=== PATIENT | female | born 1950 | race Caucasian/White ===

== ENCOUNTER → 2023-08-18 10:17 | Outpatient (REF) | payer MEDICARE, OTHER, SELFPAY ==
[2023-08-18 11:03] LABS: % Basophils 1.1 % (0-2); % Eosinophils 4.6 % (0-6); % Immature Granulocytes 0.8 % (0-0.5); % Lymphocytes 22.5 % (20.5-51.1); % Monocytes 8.5 % (1.7-9.3); % Neutrophils 62.5 % (42.2-75.2); Absolute Basophils 0.1 10^3/uL (0-0.2); Absolute Eosinophils 0.5 10^3/uL (0-0.7); Absolute Immature Granulocytes 0.1 10^3/uL (0-0.05); Absolute Lymphocytes 2.4 10^3/uL (1.2-3.4); Absolute Monocytes 0.9 10^3/uL (0.1-0.6); Absolute Neutrophils 6.6 10^3/uL (1.4-6.5); Hemoglobin 13.5 g/dL (12.0-16.0); Mean Corp Hgb Conc. 33.8 g/dL (33.0-37.0); Mean Corpuscular Hgb 31.3 pg (27.0-31.0); Mean Corpuscular Volume 92.6 fL (81.0-99.0); Mean Platelet Volume 10.8 fL (7.4-10.4); Nucleated Red Blood Cells % 0 %; Platelet Count 266 10^3/uL (130-400); Red Blood Cell Count 4.32 10^6/uL (4.20-5.40); Red Cell Dist. Width 13.8 % (11.5-14.5); White Blood Cell Count 10.6 10^3/uL (4.8-10.8)
[2023-08-18 11:35] LABS: Erythrocyte Sed Rate 38 mm/hour (0-20)
[2023-08-18 12:17] LABS: ALT (SGPT) 22 U/L (0-35); AST (SGOT) 27 U/L (14-36); Albumin 4.2 g/dl (3.5-5.0); Alkaline Phosphatase 97 U/L (38-126); Blood Urea Nitrogen 48 mg/dl (7-17); Calcium 9.8 mg/dl (8.4-10.2); Carbon Dioxide 21 mmol/L (22-30); Chloride 100 mmol/L (98-107); Direct Bilirubin 0.6 mg/dl (0.0-0.4); Glucose 148 mg/dl (70-99); HDL Cholesterol 41 mg/dl; LDL Cholesterol, Calculated 81 mg/dl; Sodium 137 mmol/L (135-145); Total Cholesterol 159 mg/dl (50-199); Total Protein 7.3 g/dl (6.3-8.2); Triglyceride 188 mg/dl (10-149); Very Low Density Lipoprotein 37 mg/dl (0-30); eGFR 27.71
[2023-08-18 12:24] LABS: TSH Reflex To Free T4 2.92 uIU/ml (0.47-4.68)
== END ==
LOC: REG 10:17
PROVIDERS: ATTENDING PHYSICIAN Internal Medicine Rheumatology; FAMILY PHYSICIAN Internal Medicine; REFERRING PHYSICIAN Specialist
DX: L98.9 Disorder of the skin and subcutaneous tissue, unspecified (principal); M06.00 Rheumatoid arthritis without rheumatoid factor, unspecified site; M10.9 Gout, unspecified; M25.50 Pain in unspecified joint; Z51.81 Encounter for therapeutic drug level monitoring; E11.8 Type 2 diabetes mellitus with unspecified complications; E78.5 Hyperlipidemia, unspecified; E66.01 Morbid (severe) obesity due to excess calories; L56.9 Acute skin change due to ultraviolet radiation, unspecified
CPT/HCPCS: 36415; 80053; 80061; 82248; 83036; 84443; 85025; 85652; 86140

== ENCOUNTER → 2023-11-29 09:49 | Outpatient (REF) | payer MEDICARE, OTHER, SELFPAY ==
[2023-11-29 11:35] LABS: % Eosinophils 6.4 % (0-6); % Immature Granulocytes 0.8 % (0-0.5); % Lymphocytes 17.3 % (20.5-51.1); % Monocytes 8.7 % (1.7-9.3); % Neutrophils 65.8 % (42.2-75.2); Absolute Basophils 0.1 10^3/uL (0-0.2); Absolute Eosinophils 0.6 10^3/uL (0-0.7); Absolute Immature Granulocytes 0.1 10^3/uL (0-0.05); Absolute Lymphocytes 1.7 10^3/uL (1.2-3.4); Absolute Monocytes 0.8 10^3/uL (0.1-0.6); Absolute Neutrophils 6.3 10^3/uL (1.4-6.5); Hematocrit 35.1 % (37.0-47.0); Hemoglobin 11.8 g/dL (12.0-16.0); Mean Corp Hgb Conc. 33.6 g/dL (33.0-37.0); Mean Corpuscular Hgb 30.9 pg (27.0-31.0); Mean Corpuscular Volume 91.9 fL (81.0-99.0); Mean Platelet Volume 10.8 fL (7.4-10.4); Nucleated Red Blood Cells % 0 %; Platelet Count 244 10^3/uL (130-400); Red Blood Cell Count 3.82 10^6/uL (4.20-5.40); Red Cell Dist. Width 14.6 % (11.5-14.5); White Blood Cell Count 9.6 10^3/uL (4.8-10.8)
[2023-11-29 11:44] LABS: Protein/creatinine Ratio 0.2; Urine Protein 24 mg/dl
[2023-11-29 11:48] LABS: Microalbumin/creatinine Ratio 21.6 mg/g
[2023-11-29 11:50] LABS: Erythrocyte Sed Rate 65 mm/hour (0-20)
[2023-11-29 13:08] LABS: ALT (SGPT) 17 U/L (0-35); AST (SGOT) 30 U/L (14-36); Alkaline Phosphatase 101 U/L (38-126); Blood Urea Nitrogen 36 mg/dl (7-17); Calcium 9.3 mg/dl (8.4-10.2); Carbon Dioxide 20 mmol/L (22-30); Chloride 105 mmol/L (98-107); Direct Bilirubin 0.6 mg/dl (0.0-0.4); Glucose 95 mg/dl (70-99); HDL Cholesterol 48 mg/dl; LDL Cholesterol, Calculated 67 mg/dl; Phosphorus 3.9 mg/dl (2.5-4.5); Sodium 138 mmol/L (135-145); Total Bilirubin 0.9 mg/dl (0.2-1.3); Total Cholesterol 149 mg/dl (50-199); Total Protein 7.1 g/dl (6.3-8.2); Triglyceride 173 mg/dl (10-149); Very Low Density Lipoprotein 34 mg/dl (0-30); eGFR 31.66
[2023-11-29 13:16] LABS: NT-proBNP 347 pg/ml
[2023-11-30 09:22] LABS: Glycohemoglobin (HgbA1c) 6.3 % (4.0-5.6)
[2023-11-30 13:19] LABS: Intact PTH 111.1 pg/ml (13.6-85.8)
[2023-11-30 15:53] LABS: Iron 64 ug/dl (37-170)
[2023-11-30 16:02] LABS: Percent Saturation 23 % (20-50); Total Iron Binding Capacity 277 ug/dl (265-497)
[2023-11-30 17:23] LABS: Folate 17.5 ng/ml (2.76-20); Vitamin B12 587 pg/ml (239-931)
[2023-12-01 07:52] LABS: Quantiferon Mitogen minus NIL 0.18 IU/mL; Quantiferon NIL 0.02 IU/mL; Quantiferon Plus TB1 minus NIL 0.01 IU/mL (0.00-0.34); Quantiferon Plus TB2 minus NIL 0.01 IU/mL (0.00-0.34); Quantiferon TB Gold Plus Indeterminate (Negative)
== END ==
LOC: REG 09:49
PROVIDERS: ATTENDING PHYSICIAN Internal Medicine Rheumatology; FAMILY PHYSICIAN Internal Medicine; REFERRING PHYSICIAN Specialist
DX: E11.22 Type 2 diabetes mellitus with diabetic chronic kidney disease (principal); E11.59 Type 2 diabetes mellitus with other circulatory complications; E66.01 Morbid (severe) obesity due to excess calories; E78.5 Hyperlipidemia, unspecified; I10 Essential (primary) hypertension; L98.9 Disorder of the skin and subcutaneous tissue, unspecified; M06.00 Rheumatoid arthritis without rheumatoid factor, unspecified site; M10.9 Gout, unspecified; M25.50 Pain in unspecified joint; Z51.81 Encounter for therapeutic drug level monitoring; N18.4 Chronic kidney disease, stage 4 (severe); D64.9 Anemia, unspecified; R20.2 Paresthesia of skin
CPT/HCPCS: 36415; 80053; 80061; 82043; 82248; 82570; 82607; 82746; 83036; 83540; 83550; 83735; 83880; 83970; 84100; 84156; 85025; 85652; 86140; 86480

== ENCOUNTER → 2023-12-27 10:50 | Outpatient (REF) | payer MEDICARE, OTHER, SELFPAY ==
[2023-12-29 20:10] LABS: Quantiferon NIL 0.02 IU/mL; Quantiferon Plus TB1 minus NIL 0.02 IU/mL (<=0.34); Quantiferon Plus TB2 minus NIL 0.02 IU/mL (<=0.34); Quantiferon TB Gold Plus Negative (Negative)
== END ==
LOC: REG 10:50
PROVIDERS: ATTENDING PHYSICIAN Internal Medicine Rheumatology; FAMILY PHYSICIAN Internal Medicine
DX: E11.41 Type 2 diabetes mellitus with diabetic mononeuropathy (principal); G62.9 Polyneuropathy, unspecified; K75.9 Inflammatory liver disease, unspecified; M06.00 Rheumatoid arthritis without rheumatoid factor, unspecified site; M10.9 Gout, unspecified; M25.50 Pain in unspecified joint; M81.0 Age-related osteoporosis without current pathological fracture; Z11.1 Encounter for screening for respiratory tuberculosis; Z51.81 Encounter for therapeutic drug level monitoring
CPT/HCPCS: 36415; 86480

== ENCOUNTER → 2024-03-27 09:19 | Outpatient (REF) | payer MEDICARE, OTHER, SELFPAY ==
[2024-03-27 10:38] LABS: ALT (SGPT) 24 U/L (0-35); AST (SGOT) 28 U/L (14-36); Albumin 4.5 g/dl (3.5-5.0); Alkaline Phosphatase 89 U/L (38-126); Direct Bilirubin 0.3 mg/dl (0.0-0.4); Glucose 109 mg/dl (70-99); HDL Cholesterol 49 mg/dl; LDL Cholesterol, Calculated 86 mg/dl; Total Bilirubin 0.8 mg/dl (0.2-1.3); Total Cholesterol 179 mg/dl (50-199); Total Protein 7.3 g/dl (6.3-8.2); Triglyceride 224 mg/dl (10-149); Very Low Density Lipoprotein 44 mg/dl (0-30)
[2024-03-27 11:35] LABS: Glycohemoglobin (HgbA1c) 5.9 % (4.0-5.6)
== END ==
LOC: REG 09:19
PROVIDERS: ATTENDING PHYSICIAN Internal Medicine; OTHER PHYSICIAN Internal Medicine Rheumatology; REFERRING PHYSICIAN Specialist
DX: E11.59 Type 2 diabetes mellitus with other circulatory complications (principal)
CPT/HCPCS: 36415; 80061; 80076; 82947; 83036

== ENCOUNTER → 2024-04-21 12:40 | Outpatient (REF) | payer MEDICARE, OTHER, SELFPAY ==
[2024-04-21 13:45] LABS: % Eosinophils 4.7 % (0-6); % Immature Granulocytes 0.9 % (0-0.5); % Lymphocytes 21.1 % (20.5-51.1); % Monocytes 9.2 % (1.7-9.3); % Neutrophils 63.1 % (42.2-75.2); Absolute Basophils 0.1 10^3/uL (0-0.2); Absolute Eosinophils 0.4 10^3/uL (0-0.7); Absolute Immature Granulocytes 0.1 10^3/uL (0-0.05); Absolute Lymphocytes 1.8 10^3/uL (1.2-3.4); Absolute Monocytes 0.8 10^3/uL (0.1-0.6); Absolute Neutrophils 5.5 10^3/uL (1.4-6.5); Hematocrit 36.9 % (37.0-47.0); Hemoglobin 12.3 g/dL (12.0-16.0); Mean Corp Hgb Conc. 33.3 g/dL (33.0-37.0); Mean Corpuscular Volume 92.9 fL (81.0-99.0); Mean Platelet Volume 11.3 fL (7.4-10.4); Nucleated Red Blood Cells % 0 %; Platelet Count 215 10^3/uL (130-400); Red Blood Cell Count 3.97 10^6/uL (4.20-5.40); Red Cell Dist. Width 14.8 % (11.5-14.5); White Blood Cell Count 8.7 10^3/uL (4.8-10.8)
[2024-04-21 14:10] LABS: Protein/creatinine Ratio 0.3; Urine Protein 23 mg/dl
[2024-04-21 14:14] LABS: ALT (SGPT) 23 U/L (0-35); AST (SGOT) 31 U/L (14-36); Albumin 4.4 g/dl (3.5-5.0); Alkaline Phosphatase 83 U/L (38-126); Blood Urea Nitrogen 37 mg/dl (7-17); Calcium 9.3 mg/dl (8.4-10.2); Carbon Dioxide 21 mmol/L (22-30); Chloride 106 mmol/L (98-107); Glucose 113 mg/dl (70-99); Phosphorus 4.1 mg/dl (2.5-4.5); Potassium 5.1 mmol/L (3.5-5.1); Sodium 143 mmol/L (135-145); Total Bilirubin 0.9 mg/dl (0.2-1.3); Total Protein 7.2 g/dl (6.3-8.2); eGFR 29.38
[2024-04-21 14:15] LABS: C-Reactive Protein < 5.00 mg/L (0.0-10.00); Erythrocyte Sed Rate 37 mm/hour (0-20)
[2024-04-21 14:20] LABS: NT-proBNP 404 pg/ml
[2024-04-21 14:31] LABS: Vitamin D, 25-OH*** 24.5 ng/mL (30-80)
[2024-04-22 11:20] LABS: Intact PTH 127.8 pg/ml (13.6-85.8)
== END ==
LOC: REG 12:40
PROVIDERS: ATTENDING PHYSICIAN Internal Medicine Rheumatology; FAMILY PHYSICIAN Internal Medicine; REFERRING PHYSICIAN Specialist
DX: I87.2 Venous insufficiency (chronic) (peripheral) (principal); N18.4 Chronic kidney disease, stage 4 (severe); E55.9 Vitamin D deficiency, unspecified; L98.9 Disorder of the skin and subcutaneous tissue, unspecified; M06.00 Rheumatoid arthritis without rheumatoid factor, unspecified site; M10.9 Gout, unspecified; M25.50 Pain in unspecified joint; Z51.81 Encounter for therapeutic drug level monitoring
CPT/HCPCS: 36415; 80053; 82306; 82570; 83880; 83970; 84100; 84156; 85025; 85652; 86140

== ENCOUNTER → 2024-08-14 11:31 | Outpatient (REF) | payer MEDICARE, OTHER, SELFPAY ==
[2024-08-14 13:03] LABS: % Basophils 0.8 % (0-2); % Eosinophils 5.2 % (0-6); % Immature Granulocytes 0.6 % (0-0.5); % Lymphocytes 24.8 % (20.5-51.1); % Monocytes 8.1 % (1.7-9.3); % Neutrophils 60.5 % (42.2-75.2); Absolute Basophils 0.1 10^3/uL (0-0.2); Absolute Eosinophils 0.5 10^3/uL (0-0.7); Absolute Immature Granulocytes 0.1 10^3/uL (0-0.05); Absolute Lymphocytes 2.3 10^3/uL (1.2-3.4); Absolute Monocytes 0.8 10^3/uL (0.1-0.6); Absolute Neutrophils 5.7 10^3/uL (1.4-6.5); Hematocrit 38.9 % (37.0-47.0); Hemoglobin 12.7 g/dL (12.0-16.0); Mean Corp Hgb Conc. 32.6 g/dL (33.0-37.0); Mean Corpuscular Hgb 31.1 pg (27.0-31.0); Mean Corpuscular Volume 95.3 fL (81.0-99.0); Mean Platelet Volume 11.3 fL (7.4-10.4); Nucleated Red Blood Cells % 0 %; Platelet Count 210 10^3/uL (130-400); Red Blood Cell Count 4.08 10^6/uL (4.20-5.40); Red Cell Dist. Width 14.2 % (11.5-14.5); White Blood Cell Count 9.5 10^3/uL (4.8-10.8)
[2024-08-14 13:18] LABS: Erythrocyte Sed Rate 50 mm/hour (0-20)
[2024-08-14 13:35] LABS: Glycohemoglobin (HgbA1c) 8.1 % (4.0-5.6)
[2024-08-14 13:37] LABS: ALT (SGPT) 20 U/L (0-35); AST (SGOT) 27 U/L (14-36); Albumin 4.6 g/dl (3.5-5.0); Alkaline Phosphatase 85 U/L (38-126); Blood Urea Nitrogen 43 mg/dl (7-17); Calcium 9.6 mg/dl (8.4-10.2); Carbon Dioxide 27 mmol/L (22-30); Chloride 98 mmol/L (98-107); Direct Bilirubin 0.2 mg/dl (0.0-0.4); Glucose 128 mg/dl (70-99); Potassium 3.9 mmol/L (3.5-5.1); Sodium 138 mmol/L (135-145); Total Bilirubin 0.8 mg/dl (0.2-1.3); Total Cholesterol 177 mg/dl (50-199); Total Protein 7.5 g/dl (6.3-8.2); Triglyceride 208 mg/dl (10-149); Uric Acid 7.6 mg/dl (2.5-6.2); Very Low Density Lipoprotein 41 mg/dl (0-30); eGFR 24.42
[2024-08-14 13:40] LABS: Calcium 9.7 mg/dl (8.4-10.2)
[2024-08-14 13:43] LABS: HDL Cholesterol 49 mg/dl; LDL Cholesterol, Calculated 87 mg/dl
[2024-08-14 13:47] LABS: Intact PTH 32.1 pg/ml (13.6-85.8)
[2024-08-14 13:59] LABS: Protein/creatinine Ratio 0.2; Urine Protein 20 mg/dl
[2024-08-14 14:01] LABS: Vitamin D, 25-OH*** 31.3 ng/mL (30-80)
== END ==
LOC: REG 11:31
PROVIDERS: ATTENDING PHYSICIAN Specialist; FAMILY PHYSICIAN Internal Medicine; OTHER PHYSICIAN Internal Medicine Rheumatology
DX: Z87.448 Personal history of other diseases of urinary system (principal); Z86.39 Personal history of other endocrine, nutritional and metabolic disease; R76.8 Other specified abnormal immunological findings in serum; E55.9 Vitamin D deficiency, unspecified; L98.9 Disorder of the skin and subcutaneous tissue, unspecified; M06.00 Rheumatoid arthritis without rheumatoid factor, unspecified site; M10.9 Gout, unspecified; M54.50 Low back pain, unspecified; M81.0 Age-related osteoporosis without current pathological fracture; Z51.81 Encounter for therapeutic drug level monitoring; E11.65 Type 2 diabetes mellitus with hyperglycemia
CPT/HCPCS: 36415; 80053; 80061; 82248; 82306; 82570; 83036; 83970; 84156; 84550; 85025; 85652; 86140

== ENCOUNTER 2024-08-28 17:55 | Inpatient (IN) | payer MEDICARE, OTHER, SELFPAY ==
[2024-08-28] VITALS (7 sets, daily range): BP systolic 110–153; BP diastolic 45–69; PULSE 76; BMI 43.0
[2024-08-28 12:17] LABS: % Basophils 0.7 % (0-2); % Lymphocytes 16.7 % (20.5-51.1); % Monocytes 9.2 % (1.7-9.3); % Neutrophils 69.4 % (42.2-75.2); Absolute Basophils 0.1 10^3/uL (0-0.2); Absolute Eosinophils 0.2 10^3/uL (0-0.7); Absolute Immature Granulocytes 0.3 10^3/uL (0-0.05); Absolute Lymphocytes 2.1 10^3/uL (1.2-3.4); Absolute Monocytes 1.1 10^3/uL (0.1-0.6); Absolute Neutrophils 8.5 10^3/uL (1.4-6.5); Hematocrit 33.8 % (37.0-47.0); Hemoglobin 11.4 g/dL (12.0-16.0); Mean Corp Hgb Conc. 33.7 g/dL (33.0-37.0); Mean Corpuscular Hgb 31.4 pg (27.0-31.0); Mean Corpuscular Volume 93.1 fL (81.0-99.0); Mean Platelet Volume 10.9 fL (7.4-10.4); Nucleated Red Blood Cells % 0 %; Platelet Count 253 10^3/uL (130-400); Red Blood Cell Count 3.63 10^6/uL (4.20-5.40); Red Cell Dist. Width 15.1 % (11.5-14.5); White Blood Cell Count 12.3 10^3/uL (4.8-10.8)
[2024-08-28 12:29] LABS: Lactic Acid 1.9 mmol/L (0.7-2.0)
[2024-08-28 12:30] LABS: ALT (SGPT) 31 U/L (0-35); AST (SGOT) 34 U/L (14-36); Alkaline Phosphatase 122 U/L (38-126); Blood Urea Nitrogen 39 mg/dl (7-17); Calcium 8.8 mg/dl (8.4-10.2); Carbon Dioxide 21 mmol/L (22-30); Chloride 100 mmol/L (98-107); Glucose 179 mg/dl (70-99); Sodium 137 mmol/L (135-145); Total Bilirubin 1.1 mg/dl (0.2-1.3); Total Protein 7.1 g/dl (6.3-8.2); eGFR 23.09
--- NOTE | 2024-08-28 15:41 | ED.GENMED ---
History of Present Illness
General
Chief Complaint: Skin Problem
Time Seen by Provider: 08/28/24 13:48
History of Present Illness
History of Present Illness:
74-year-old female with history of diabetes presenting for worsening wound to her left foot. Patient notes that she does follow with a field specialist, Dr. Garcia. She last saw her field specialist in . She notes she has had a chronic
ulceration on her left first toe. In the past several days she has had worsening redness and blistering. Notes chronic neuropathy. Denies any fever. Notes history of debridement in the past, however no amputations. She has not currently on any
antibiotics. Denies additional acute medical complaints
Past History
Past History
ED Past Medical History: HTN, NIDDM and Other
ED Past Surgical History: Orthopedic
Social History
Tobacco: Non-smoker
Alcohol: Occasional
Drug: None
Personal: Single
Living: alone
Phy Exam
Physical Exam
Physical Exam:
General: Well-appearing, no clinical signs of dehydration, nontoxic and in no acute distress
HEENT: protecting airway
Neck: appears supple
CV: Normal heart rate
Resp: No accessory muscle use, no increased work of breathing
Abd: no distension
Extremities: Swelling and redness to the first toe with blistering and superficial fluid collections to consistency of pus extending into the MTP. Chronic callus to the plantar aspect. Dopplerable pulses. Erythema tracks to the ankle. Sensation
intact
Neuro: alert, no focal neurologic deficit
: deferred
Rectal: deferred
Psych: Normal affect
Skin: Intact
Course
Orders/Labs/Results
Orders:
Orders
08/28/24 12:05
Complete Blood Count/With Diff Urgent
Comprehensive Metabolic Panel Urgent
Lactate Level [Lactic Acid] Q4H
Blood Culture Urgent
EMIGDIO Source: Blood/Venous
Specimen Description:
08/28/24 14:25
Foot, Left 3 View [CR Foot - Left Min 3 Views] Urgent
Comment:
Reason For Exam: 1st toe foot wound
08/28/24 14:42
Wound Culture [Wound/Abscess/Other Culture] Urgent
EMIGDIO Source: Foot
Specimen Description: Left
Date Specimen was Collected: 08/28/24
Time Specimen was Collected: 14:27
08/28/24 Dinner
Cholesterol Lowering
At Your Request: Limited Participation
Cholesterol Lowering: Sodium, 2 Gram
1800 agusto/15 CHO Diabetic
08/28/24 16:06
Sterile Water [Sterile Water For Injection] 10 ml .ROUTE .STK-MED ONE
08/28/24 16:24
CeFAZolin 2 GRAM [Ancef] 2 grams in 10 ml IV NOW
08/28/24 16:26
Vancomycin [Vancocin] 1,500 mg 0.9% Sodium Chloride 500 ml [Nss] 500 ml IV NOW
08/28/24 16:58
Admit/Transfer Patient As Directed
Co-Sign Provider:
Level of Care: Inpatient admission
Assign to:: Medical/Surgical
Physician / Group: stewart díaz
Diagnosis: L great toe cellulitis expanding to foot/lower leg, dm2 timoteo/ckd4
Reason for Hospitalization: L great toe cellulitis expanding to foot/lower leg, dm2 timoteo/ckd4
Expected length of stay greater than two midnights?: Yes
ELOS- Estimated Length of Stay in days: 5
I certify the patient meets the requirements for IP care: Yes
Code Status As Directed
Resuscitation Status: Full Code
PODIATRY CONSULT Routine
Consulting Provider: Shonna Garcia
Was physician already notified: Yes
Reason for consult: left great toe cellulitis expandng to foot and 1/3 lower leg
08/28/24 17:06
PRN Pain Medication Management As Directed
May give lesser potent ordered pain med per pt: Yes
preference::
Protocol:: Medication orders for pain may be administered in a
manner that supports deferring to patient preference
when the pt is:
- Requesting an ordered lesser potent pain medication.
Least to most potent pain medications are defined
as: acetaminophen < NSAID < tramadol < opioids
(morphine, oxycodone, hydromorphone).
- Requesting a lesser dose of the same medication IF
ORDERED.
- Requesting a less intrusive route of administration
if both routes are prescribed by the provider (PO <
IV).
08/28/24 17:15
0.9% Sodium Chloride 1000 ml [Nss] 1,000 ml IV 100 mls/hr
08/28/24 17:24
Blood Culture Urgent
EMIGDIO Source: Blood/Venous
Specimen Description:
08/28/24 18:42
Acetaminophen [Tylenol] 650 mg PO Q4HPRN PRN
Bisacodyl [Dulcolax] 10 mg RECTAL [id number] PRN
Dextrose 50%-Water [Dextrose 50% Syringe] 12.5 grams IV [id number] PRN
Docusate W/Senna [Senokot-S] 1 tablet PO BIDPRN PRN
Glucagon [GlucaGen] 1 mg IM PRN PRN
Polyethylene Glycol Powder [Miralax] 17 grams PO DAILYPRN PRN
VANCOMYCIN Pharmacy to Dose [VANCOCIN Pharmacy to Dose] 1 each Pharmacy To Prepare [Call Pharmacy To Prepare] 0 ml IV PER PROTOCOL
08/28/24 18:42
Activity As Directed
Activity Level: With Assistance
Comment: uses rollator
Bedside Glucose Monitoring As Directed
Frequency: AC&HS
Additional Instructions:: Change to q6h if pt on TPN, tube feeding or not eating
Intake/ Output As Directed
Frequency: Per unit guidelines
Vital Signs As Directed
Frequency: Per unit guidelines
Weight As Directed
Frequency: Daily
Ot Eval And Treat Routine
Pt Eval And Treat Routine
Treatment: Uses rollator at baseline
Activity Level: With Assistance
DX Deep Vein Thrombosis Video Routine
08/28/24 20:00
Cefepime HCl [Maxipime] 1,000 mg IV Q24H
Heparin 5,000 units SC Q12
08/28/24 22:00
Cpap [RESP] Routine
Patient to use own unit?: No
Set Pressure (cm H2O): 15
Instructions: Uses nasal mask
08/29/24 07:17
Complete Blood Count/With Diff IN AM
Comprehensive Metabolic Panel IN AM
08/29/24 07:30
Insulin Aspart Corrective Low [Novolog Flexpen-Low Resistance] See Protocol SC AC
08/30/24 06:00
Complete Blood Count/With Diff IN AM
Comprehensive Metabolic Panel IN AM
08/31/24 06:00
Complete Blood Count/With Diff IN AM
Comprehensive Metabolic Panel IN AM
09/01/24 06:00
Complete Blood Count/With Diff IN AM
Comprehensive Metabolic Panel IN AM
09/02/24 06:00
Complete Blood Count/With Diff IN AM
Comprehensive Metabolic Panel IN AM
Abnormal Lab Results
08/28/24
12:05
WBC 12.3 H 10^3/uL
(4.8-10.8)
RBC 3.63 L 10^6/uL
(4.20-5.40)
Hgb 11.4 L g/dL
(12.0-16.0)
Hct 33.8 L %
(37.0-47.0)
MCH 31.4 H pg
(27.0-31.0)
RDW 15.1 H %
(11.5-14.5)
MPV 10.9 H fL
(7.4-10.4)
Abs Immat Gran (auto) 0.3 H 10^3/uL
(0-0.05)
Absolute Neuts (auto) 8.5 H 10^3/uL
(1.4-6.5)
Absolute Monos (auto) 1.1 H 10^3/uL
(0.1-0.6)
Immature Gran % 2.0 H %
(0-0.5)
Lymphocytes % 16.7 L %
(20.5-51.1)
Carbon Dioxide 21 L mmol/L
(22-30)
BUN 39 H mg/dl
(7-17)
Creatinine 2.2 H mg/dL
(0.6-1.0)
Glucose 179 H mg/dl
(70-99)
08/28/24 12:05
08/28/24 12:05
Vital Signs
Initial and Last Documented VS:
Initial Vital Signs
Temp Pulse Resp BP Pulse Ox
98.7 F 70 16 153/69 97
08/28/24 11:51 08/28/24 11:51 08/28/24 11:51 08/28/24 11:51 08/28/24 11:51
Last Documented Vital Signs
Temp Pulse Resp BP Pulse Ox
98.6 F 81 18 113/54 98
08/29/24 07:00 08/29/24 07:00 08/29/24 07:00 08/29/24 07:00 08/29/24 07:00
MDM/Problems Addressed
MDM/Problems Addressed:
74-year-old female with history of diabetes presenting for worsening left foot infection. Vital signs are normal.
On exam patient is resting comfortably, nontoxic and afebrile. Patient with grossly abnormal left foot and large wound involving the first toe extending up to the foot with surrounding cellulitic changes and pustules. Concern for cellulitis and
acute infection. Plan for laboratory analysis and x-ray imaging. Will also discussed with patient's field specialist.
15:45 - Patient does have mild leukocytosis. No signs of gas on x-ray. Podiatry made aware. Plan for admission for IV antibiotics and potential treatment
*Critical Care Note
Total Time (30-74mins, 75-104mins- exclusive of procedures): Not Applicable
ED Attending Note
-
Portions of this chart may have been created with voice recognition software.� Occasional wrong word or��sound alike� substitutions may have occurred due to the inherent limitations of voice recognition software.
Discharge Plan
Departure
Patient Disposition: Admit
Date of Disposition: 08/28/24
Time of Disposition: 16:19
Presentation/result/management discussed w/ accepting MD/DO: Hospitalist
Discharge Problem:
Diabetic foot ulcer, Cellulitis of foot
Interventions
Interventions:
*Risk Screen - Suicide Last Done: 08/28/24 16:54
*General Assessment Last Done: 08/28/24 16:54
*Neglect/Abuse Screening Last Done: 08/28/24 16:54
ED- Fall Risk Assessment Last Done: 08/28/24 18:34
*ED COVID-19 Vaccine History Last Done: 08/28/24 16:54
*Nursing Disposition Last Done: 08/28/24 18:34
ED-Skin Assessment Last Done: 08/28/24 18:34
Discharge Date and Time
Discharge Date/Time: 08/28/24 18:36
--- NOTE | 2024-08-28 16:31 | HPS.HSE ---
Family Physician
-
Family Physician: Fran Vance
Chief Complaint
-
Left great toe blister with erythema to foot and lower leg
History of Present Illness
74-year-old female complaining of a worsening wound to her left foot. She follows with podiatry Dr. Garcia and last saw her in April/May 2024 due to a chronic ulceration of her left great toe plantar aspect. She reports over the past
several days she has had increased redness and blistering to the left anterior toe with a pus filled blister she then had expanding erythema to the toe down to the foot/ankle and lower anterior one third of her leg. She says the anterior one third
of her leg is chronically red from a prior reaction to methotrexate however this appears to be coming from the left great toe and connecting to the erythema on the left lower extremity. She does have chronic diabetic neuropathy. She has required
debridements in the past but no amputations. She denies fever, chills, chest pain, palpitations, shortness breath, cough, abdominal pain, nausea, vomiting, diarrhea, rash, urinary symptoms. She does have a dog at home and does have some dog hair
present in her wound on the toe. She does live alone drives a car uses a rollator. She has no family or emergency contacts I made her aware to contact the area agency on aging to sit down and formulate a will and power of family law attorney if something
were to happen to her.
She has past medical history HTN, CKD 4A, GERD, DM2, Diabetic neuropathy, chronic ambulatory dysfunction uses rollator, HLD diverticulosis, sleep apnea on nasal CPAP setting 15, osteoarthritis, rheumatoid arthritis diagnosed 2021 erosion LEFT great
toe s/p debridement
Medical History
Past Medical History
Past Medical History: Reports Other
Additional Past Medical History:
HTN
CKD 4A
GERD
DM2
HLD
Diverticulosis
Sleep apnea nasal CPAP setting 15
Class III obesity
Past Surgical History: Reports Other
Additional Past Surgical History:
Shoulder replacement, meniscal surgery
Social History
Tobacco: Non-smoker
Alcohol: None
Drug: None
Personal: Single
Living: Alone
Employment: Retired
Family History
Family History: Not pertinent
Allergies / Home Medications
Allergies reflects when Allergies were last updated in [facility] [employer].
Home Medications with original date entered in [facility]
Allergy/Medication List:
Allergies
Allergy/AdvReac Type Severity Reaction Status Date / Time
famotidine [From Pepcid] Allergy Severe Swelling Verified 08/28/24 11:53
ketoconazole Allergy Intermediate Itching Verified 08/28/24 11:53
Methotrexate Analogues Allergy Intermediate Rash Verified 08/28/24 11:53
adhesive Allergy Rash Verified 08/28/24 11:53
cefadroxil hydrate Allergy Unknown; Verified 08/28/24 16:18
[From Duricef] tolerated
cefdinir
in 2021
Penicillins Allergy hives as a Verified 08/28/24 16:18
child
vancomycin Allergy vancomycin Verified 08/28/24 16:18
infusion
reaction -
itching
and redness
Home Medications
celecoxib 200 mg capsule 200 mg PO DAILY 06/25/12
metoprolol tartrate 50 mg tablet 50 mg PO BID 06/25/12
bimatoprost 0.01 % eye drops (Lumigan) 1 drp BOTH EYES HS 05/30/19
acetaminophen 500 mg tablet (Tylenol Extra Strength) 500 mg PO Q8HPRN PRN mild pain/fever 08/28/24
ascorbic acid (vitamin C) 500 mg tablet (Vitamin C) 500 mg PO DAILY 08/28/24
atorvastatin 40 mg tablet 40 mg PO HS 08/28/24
cholecalciferol (vitamin D3) 50 mcg (2,000 unit) tablet (Vitamin D3) 50 mcg PO DAILY 08/28/24
coenzyme Q10 100 mg capsule (CoQ-10) 100 mg PO HS 08/28/24
dexlansoprazole 60 mg capsule,biphase delayed release 60 mg PO DAILY 08/28/24
docusate sodium 100 mg capsule (Stool Softener) 100 mg PO Q48H 08/28/24
empagliflozin 10 mg tablet (Jardiance) 10 mg PO DAILY 08/28/24
fluticasone propionate 50 mcg/actuation nasal spray,suspension 1 spray intranasal DAILYPRN PRN congestion 08/28/24
furosemide 20 mg tablet 20 mg PO MOWEFR 08/28/24
furosemide 20 mg tablet 40 mg PO SUTUTHSA 08/28/24
loratadine-pseudoephedrine ER 10 mg-240 mg tablet,extended [id number] (Allergy Relief D-24hr) 1 tab PO DAILY 08/28/24
losartan 100 mg tablet 100 mg PO DAILY 08/28/24
magnesium chloride 71.5 mg (magnesium chloride) tablet,delayed release (Slow-Mag) 71.5 mg PO DAILY 08/28/24
oxybutynin chloride 2.5 mg tablet 2.5 mg PO BID 08/28/24
pregabalin 50 mg capsule 50 mg PO DAILY 08/28/24
pyridoxine (vitamin B6) 100 mg tablet 100 mg PO DAILY 08/28/24
repaglinide 2 mg tablet 2 mg PO TID 08/28/24
semaglutide 2 mg/dose (8 mg/3 mL) subcutaneous pen injector (Ozempic) 4 mg SC QWEEK 08/28/24
therapeutic multivitamin 1 tab PO DAILY 08/28/24
Review of Systems
-
History Source: Patient
A 12 point ROS was completed and negative except as noted: Yes
Constitutional: Denies Fever or Chills
EENT: Denies Sore Throat or Runny Nose
Respiratory: Denies Cough or Trouble Breathing
Cardiac: Denies Chest Pain, Diaphoresis, Palpitations or Syncope
Abdomen/GI: Denies Abdominal Pain, Nausea, Vomiting, Diarrhea, Constipated, Bloody Stools or Black Stools
: Denies Dysuria, Frequency, Flank Pain, Incontinence, Difficulty Voiding, Urgency or Bleeding
Musculoskeletal: Reports Joint Pain (Left great toe), Joint Swelling (Left great toe expanding to ankle and distal one third of leg with erythema and blister to left dorsal great toe, hard callus plantar aspect left great toe) and Edema
Skin: Denies Itching or Rash
Neurological: Denies Dizzy, Headache or Weakness
Endocrine: Reports No Symptoms
Hematologic/Lymphatic: Reports No Symptoms
Psych: Reports Calm
Physical Exam
Vital Signs
Vital Signs
Temp Pulse Resp BP Pulse Ox
98.7 F 76 18 137/59 99
08/28/24 11:51 08/28/24 14:49 08/28/24 14:49 08/28/24 14:49 08/28/24 14:49
Physical Exam
General: Comfortable, Conversant and Morbidly Obese; No Fever or Chills
HEENT: NormoCephalic, Anicteric, Moist mucous membranes, PERRLA, [place] Conjunctivae and No Ptosis
Respiratory: Clear; No Wheezes, Rales or Rhonchi
Cardiac: S1/S2 and Regular Rhythm; No Murmur, Rub, Gallop or Peripheral Edema
Breast: Deferred by me
GI: Soft, Non Tender, Non Distended, Normal Bowel Sounds and No Hepatosplenomegaly
Rectal: Deferred by Provider
Genito-urinary: Deferred by me
Musculoskeletal: No Clubbing, No Cyanosis and Edema, Left Lower Extremity (Left great toe expanding to ankle and distal one third of leg with erythema and blister to left dorsal great toe, hard callus plantar aspect left great toe); No Edema, Left
Upper Extremity, Edema, Right Upper Extremity or Edema, Right Lower Extremity
Skin: Warm and Dry; No Rash
Neuro: AO x 3, No Motor Deficits, Nonfocal/grossly intact, Cranial Nerves Intact and No Sensory Deficits; No Slurred Speech, Facial Droop, Tremors or Sedated
Psych: Calm
Laboratory Results
-
08/28/24 12:05
08/28/24 12:05
Laboratory Results
Lactic Acid Cancelled 08/28/24 16:00
Total Bilirubin 1.1 mg/dl (0.2-1.3) 08/28/24 12:05
AST 34 U/L (14-36) 08/28/24 12:05
ALT 31 U/L (0-35) 08/28/24 12:05
Alkaline Phosphatase 122 U/L (38-126) 08/28/24 12:05
Data Reviewed
-
Diagnostic Radiology: Report Reviewed by me
Lab Data: Labs Reviewed by me
Impression/Plan
-
Impression/plan:
Admit to [facility]
#Left great toe blister with cellulitis expanding to foot and one third lower extremity
#Chronic nonhealing blister plantar aspect left great toe
WBC 12.3 with shift, 98.7F, HR 76, 137/59
-Blood cultures x 2
-Wound culture-obtained in ER
-Consult Podiatry Dr Garcia
-IV Vancomycin infused slowly to avoid 'red man' syndrome
-IV Flagyl
-IV Cefepime
-MRI left lower Extremity without contrast due to GFR 23
-PT/OT/case management
Left foot x-ray: No radiographic findings highly suspicious for osteomyelitis
Rheumatoid arthritis left great toe 2021 erosion per patient
States had allergic reaction to methotrexate with erythema left lower leg
-Continue Celebrex 200 mg daily
#DM2
Diabetic neuropathy
BS 179
-Accu-Cheks with SSI, check HgbA1c
-Diabetic diet
-Continue Lyrica 15 mg daily, repaglinide 2 mg p.o. 3 times daily, Jardiance 10 mg daily, continue vitamin B6 for neuropathy
Patient is on Ozempic weekly last dose 08/23/2024
# NAVNEET on CKD 4A
Creat 2.2 recent 2.1 on 08/14/2024 prior baseline 1.8 in 2023
-Will give IV NSS 100 cc/h x 1 bag
-Hold Lasix 20 mg Wednesday, 40 mg Wednesday
-Follow BMP in a.m.
#HTN�benign
BP 137/59
-Continue metoprolol 50 mg twice daily
-cont losartan 100 mg daily history CKD 4
#GERD
-Continue dexlansoprazole or equivalent
#HLD
-Continue Lipitor 40 mg at bedtime
#Chronic ambulatory dysfunction uses rollator at baseline
-PT/OT/case management consult
#Class III obesity�BMI 44.8
-Affects all aspects of care
-Recommend weight loss
-Low-fat diabetic diet
Overactive bladder
-Continue oxybutynin
Other PMH:
Diverticulosis
Sleep apnea-uses nasal CPAP setting 15
DVT prophylaxis
Subcutaneous heparin
Full code per patient has no family or emergency contacts I advised the patient to speak with the area of Agency on Aging to help her formulate a living will and power of family law attorney
[2024-08-28] MEDS: ANCEF 10 IV (16:57)
[2024-08-28] MEDS: VANCOCIN 530 MG IV (16:57)
--- NOTE | 2024-08-28 17:07 | W.PN.UPDATE ---
Update Note
Progress Note Update
This is an addendum to the H&P written by Agueda Roper on 08/28/2024.� Patient seen examined independent with IMPROVEMENT MANAGER.
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
first toe.� Increasing redness and blistering over past few days.
Vitals normal.� Labs show leukocytosis.� Labs show creatinine of 2.2 from 1.8 baseline.
Foot x-ray shows no findings to suggest osteomyelitis.
Presentation concerning for diabetic foot wound exacerbated by underlying rheumatoid arthritis, with concern for osteomyelitis. Renal function at baseline.
Check blood cultures.� Wound culture sent.� Vancomycin/cefepime/Flagyl.� Check MRI foot.�Podiatry consulted.
[2024-08-28] MEDS: NSS 1000 IV (18:20)
--- NOTE | 2024-08-28 19:15 | PTCARENOTE ---
Pt received from from day shift nurse at 1915. Pt pleasant, AAOX3, VSS, and able to ambulate with assistance and walker. Pt receptive to room and call her. Pt bed in lowest position and call her within reach. Pt educated on importance of call her
usage, pt relays understanding and cooperation. Pt complains of mild pain in left foot, see SEP. Pt left foot wound draining scant serosanguineous drainage. Abd dressing and cathleen applied. Will continue with current plan of care.
--- NOTE | 2024-08-28 19:29 | CON.MD ---
Consultation - Medical
-
74 year old female well known to our service presented to the ED with swelling, redness and pain in the left LE. She is seen in my office on a regular basis for diabetic foot care and management of chronic callous on the left hallux, but states she
has not been able to keep her appointments due to illness. She recalls noticing small while dots on the dorsal aspect of her left great toe last wednesday which then became red, then purple and leg became red and swelling as well. States she would
have come to the ED sooner but was unable to leave her home due to bad weather Wednesday. She does not recall specific trauma but admits that her dog may have scraped her toe, and ED report noted dog hair in the wound. She describes having alternate
feelings of fever and chills.
PMH includes rheumatoid arthritis, diabetes with mild peripheral neuropathy and CKD
On exam pedal pulses are palpable bilaterally. Edema noted left toes, foot and lower leg with proximal margin of cellulitis marked. Callous present at plantar medial IP joint with no underlying ulcer, but more distal a superficial ulceration
present. Dorsal aspect of hallux with multiple small blisters present along the Extensor Hallucis tendon from the MTPJ to the midfoot. Clear serous drainage present with no purulence, and several of the blisters have an underlying focal purple
discoloration.
Afebrile with Leukocytosis and WBC 12.3, radiographs negative for osseous changes and no indication of osteomyelitis
Impression/Plan
-Cellulitis left LE
Erythema and edema as well as blistering left hallux and dog hair found in wound, therefore likely caused by described scratch from her dog
Will monitor cellulitis and wound necrosis response to current antibiotic therapy and await wound cultures.
Await MRI as surgical I and D may be warranted
-Diabetes mellitus with mild peripheral neuropathy
-Rheumatoid Arthritis
-HTN
--- NOTE | 2024-08-28 19:33 | PHA.VAN.IN ---
Assessment
- Assessment
Renal Function: Appears elevated from baseline (~1.8)
Concomitant Antimicrobials: cefepime
Plan
- Plan
Initial / Loading Dose: vanc 1500mg administered @ 1657 (rate slowed, administered over 3 hours)
Maintenance Regimen: dosing by level
Monitoring: random level 08/29 06
Pharmacokinetics Vancomycin I
- -
Patient Age: 74
Patient Sex: Female
Vancomycin Day #: 1
Indication: Diabetic Foot
Requesting Provider: Agueda Roper
Pertinent Antimicrobial Allergies:
cefadroxil - unknown (tolerated cefdinir 2021)
penicillin - hives as a child
vancomycin - vancomycin infusion reaction (itching/redness)
Height / Weight:
Height 5 ft 6 in
Actual Weight 125.9 kg
- Vital Signs / Lab Results
Temp Pulse Resp BP Pulse Ox
98.3 F 85 20 138/63 97
08/28/24 18:51 08/28/24 18:51 08/28/24 18:51 08/28/24 18:51 08/28/24 18:51
Lab Results - Hematology
08/28/24
12:05
WBC 12.3 H
Lab Results - Chemistry
08/28/24
12:05
BUN 39 H
Creatinine 2.2 H
Albumin 4.0
08/28/24 08/28/24
12:05 16:00
Lactic Acid 1.9 Cancelled
Microbiology Results
08/28/24 14:42 Gram Stain - Preliminary
Foot - Left
[2024-08-28 20:04] LABS: Glucose - Point of Care 65 mg/dl (70-99)
[2024-08-28 20:46] LABS: Glucose - Point of Care 84 mg/dl (70-99)
[2024-08-28] MEDS: HEPARIN 5000 UNITS SC (21:31)
[2024-08-28] MEDS: STERILE WATER FOR INJECTION 10 ML IV (21:32)
[2024-08-28] MEDS: TYLENOL 650 MG PO (21:32)
[2024-08-28] MEDS: MAXIPIME 1000 MG IV (21:32)
[2024-08-29 00:17] LABS: Glucose - Point of Care 149 mg/dl (70-99)
[2024-08-29 02:57] LABS: Glucose - Point of Care 102 mg/dl (70-99)
[2024-08-29 06:00] VITALS: BMI 43.0
[2024-08-29 07:00] VITALS: BP 113/54
[2024-08-29 09:06] LABS: % Basophils 0.9 % (0-2); % Eosinophils 3.8 % (0-6); % Immature Granulocytes 2.1 % (0-0.5); % Lymphocytes 22.9 % (20.5-51.1); % Monocytes 11.4 % (1.7-9.3); % Neutrophils 58.9 % (42.2-75.2); Absolute Basophils 0.1 10^3/uL (0-0.2); Absolute Eosinophils 0.3 10^3/uL (0-0.7); Absolute Immature Granulocytes 0.2 10^3/uL (0-0.05); Absolute Neutrophils 5.3 10^3/uL (1.4-6.5); Hematocrit 30.9 % (37.0-47.0); Hemoglobin 10.2 g/dL (12.0-16.0); Mean Corpuscular Hgb 31.2 pg (27.0-31.0); Mean Corpuscular Volume 94.5 fL (81.0-99.0); Mean Platelet Volume 11.1 fL (7.4-10.4); Nucleated Red Blood Cells % 0 %; Platelet Count 238 10^3/uL (130-400); Red Blood Cell Count 3.27 10^6/uL (4.20-5.40); Red Cell Dist. Width 14.8 % (11.5-14.5); White Blood Cell Count 8.9 10^3/uL (4.8-10.8)
[2024-08-29 09:17] LABS: Vancomycin Random 11.6 ug/ml
[2024-08-29] MEDS: HEPARIN 5000 UNITS SC ×2 (09:23→19:23)
[2024-08-29] MEDS: NOVOLOG FLEXPEN-LOW RESISTANCE SC ×3 (09:27→18:19)
[2024-08-29 09:28] LABS: Glucose - Point of Care 108 mg/dl (70-99)
[2024-08-29 09:31] LABS: ALT (SGPT) 19 U/L (0-35); AST (SGOT) 24 U/L (14-36); Albumin 3.1 g/dl (3.5-5.0); Alkaline Phosphatase 104 U/L (38-126); Blood Urea Nitrogen 32 mg/dl (7-17); Calcium 8.2 mg/dl (8.4-10.2); Carbon Dioxide 23 mmol/L (22-30); Chloride 107 mmol/L (98-107); Estimated Creatinine Clearance 35 ml/min; Glucose 81 mg/dl (70-99); Potassium 3.8 mmol/L (3.5-5.1); Sodium 142 mmol/L (135-145); Total Bilirubin 0.7 mg/dl (0.2-1.3); eGFR 27.54
--- NOTE | 2024-08-29 10:26 | PHA.VAN.FU ---
Vancomycin Assessment / Plan
- Assessment
Renal Function: SCR Decreasing
WBC's are: WNL
In the past 24 hrs, patient has been: Afebrile
Concomitant Antimicrobials: cefepime
- Assessment - Therapeutic Drug Monitoring
Random Level: 11.6 - drawn ~14H after 1500mg initial dose
- Dosing Plan
Dosing by Level: Re-dose today (Vanc 1250mg infused over 120 mins / ~10mg/min)
- Monitoring Plan
Random Level: 08/30 599
- Follow Up
Pharmacy will continue to follow.
Vancomycin Follow UP
- -
Patient Age: 74
Patient Sex: Female
Vancomycin Day #: 2
Indication: Diabetic Foot
Requesting Provider: Agueda Roper
Pertinent Antimicrobial Allergies:
cefadroxil - unknown (tolerated cefdinir 2021)
penicillin - hives as a child
vancomycin - vancomycin infusion reaction (itching/redness)
Height / Weight:
Height 5 ft 6 in
Actual Weight 120.81 kg
Pertinent Past Medical History: BMI ~43
- Vital Signs / Lab Results
Temp Pulse Resp BP Pulse Ox
98.6 F 81 18 113/54 98
08/29/24 07:00 08/29/24 07:00 08/29/24 07:00 08/29/24 07:00 08/29/24 07:00
Lab Results - Hematology
08/28/24 08/29/24
12:05 07:17
WBC 12.3 H 8.9
Lab Results - Chemistry
08/28/24 08/29/24
12:05 07:17
BUN 39 H 32 H
Creatinine 2.2 H 1.9 H
Estimated Creat Clear 35
Albumin 4.0 3.1 L
08/28/24 08/28/24
12:05 16:00
Lactic Acid 1.9 Cancelled
Microbiology Results
08/28/24 14:42 Wound Culture - Preliminary
Foot - Left Proteus species
Viridans Streptococcus Group
Gram Stain - Preliminary
Therapeutic Drug Monitoring
Random Vancomycin 11.6 ug/ml 08/29/24 07:17
[2024-08-29] MEDS: VANCOCIN 275 MG IV (11:51)
[2024-08-29 12:20] VITALS: BP 125/68
[2024-08-29 13:17] VITALS: BP 129/68; PULSE 73
[2024-08-29 14:03] LABS: Glucose - Point of Care 126 mg/dl (70-99)
--- NOTE | 2024-08-29 14:41 | CM ---
Patient seen at bedside with physicians. Patient states that she lives alone in a 2 story home. Patient stated that she stays on the first floor. Patient stated that she has a rollator and that she uses the [facility] in [place] and has food delivery.
Patient PCP is Dr. Vance. Patient plan is to go home with no needs. Patient may benefit from VN at discharge. CM will continue to follow for discharge planning needs.
Plan; home with VN vs home with no needs
[2024-08-29 15:09] VITALS: BP 156/68
--- NOTE | 2024-08-29 15:33 | CON.ID ---
Consultation
-
Date/Time Consultation Requested: August 29, 2024 1341
Date/Time Consultation Performed: August 29, 2024 1535
Requesting Provider: Dr. Doreen Linares
Performing Provider: Dr. Natty Coelho
Reason for Consultation: Diabetic foot
Chief Complaint / Past History
Chief Complaint
Left foot redness
History of Present Illness
74-year-old female with diabetes mellitus, neuropathy, CKD 4, rheumatoid arthritis on Cimzia last received May 2024, chronic left great toe plantar callus who developed left great toe redness on . She then developed blister on top of
the toe that extended up to the forefoot. The blister had pus in it. The redness then extended from the toe up to her ankle. She therefore came to the ER yesterday. No fevers or chills. White count was 12.3. She was started on cefepime and
vancomycin. MRI of the foot without contrast :no osteo, there is rounded prominence dorsal to the mid to distal first metatarsal bone with complex collection possibly. Patient denies trauma. She never walks barefoot. Her dog may have stomped on
her toes several times. The pain is better today. She reports the redness above the ankle is chronic from methotrexate adverse reaction.
Past History
Additional Past Medical History:
Diabetes mellitus type 2
Neuropathy
Hypertension
CKD 4
HLD
Sleep apnea on CPAP
Class III obesity, BMI 43
Rheumatoid arthritis on Cimzia
History of shoulder replacement
Allergy History:
adhesive Allergy (Verified 08/28/24 11:53)
Rash
cefadroxil hydrate [From Duricef] Allergy (Verified 08/29/24 13:28)
Unknown; tolerated cefdinir in 2021
famotidine [From Pepcid] Allergy (Verified 08/28/24 18:43)
Swelling/throat swelling
ketoconazole Allergy (Verified 08/28/24 18:43)
Itching
Methotrexate Analogues Allergy (Verified 08/28/24 18:43)
Rash
Penicillins Allergy (Verified 08/29/24 13:28)
hives as a child; tolerated cefazolin and cefepime in 2024
vancomycin Allergy (Verified 08/28/24 16:18)
vancomycin infusion reaction - itching and redness
Medications Reviewed: Yes
Current Antibiotics:
Vancomycin day 2
Cefepime day 2
Social History
Tobacco: Non-Smoker
Alcohol: None
Drug: None
Living: Alone
Family History
Family History: Not Pertinent
Review of Systems
Review of Systems
General: Negative Fever, Chills or Change in Appetite
HEENT: Negative Sinus Problems
Respiratory: Negative Dyspnea or Cough
Gasteroenterology: Negative Nausea, Vomiting or Diarrhea
Genital / Urological: Negative Dysuria or Flank Pain
Endocrine: Negative Weakness
Neurological: Negative Dizziness
All systems: All other systems were reviewed and were negative
Vital Signs
Temp Pulse Resp BP Pulse Ox
98 F 83 18 156/68 98
08/29/24 15:09 08/29/24 15:09 08/29/24 15:09 08/29/24 15:09 08/29/24 15:09
Physical Exam
Physical Exam
Constitutional: No Acute Distress, Comfortable and Obese
Eyes: No Conjunctival Hemorrhage
Cardiovascular: Regular Rate, Irregular Rate and S1/S2
Pulmonary: Clear
Gastrointestinal: Soft, Non Tender, Non Distended and Normal Bowel Sounds
Genito-Urinary: Negative CVA Tenderness
Extremities: Edema and Erythema (left great toe to dorsum of foot with bright erythema. )
Wound: Other (Thick callus plantar side of left hallux. Dorsal hallux + purulent abscess extending up to dorsum of foot (see photo below). )
Neurological: AO x 3
Lab / Diagnostic Study Results
08/29/24 07:17
08/29/24 07:17
Abs Immat Gran (auto) 0.2 10^3/uL (0-0.05) H 08/29/24 07:17
Absolute Neuts (auto) 5.3 10^3/uL (1.4-6.5) 08/29/24 07:17
Absolute Lymphs (auto) 2.0 10^3/uL (1.2-3.4) 08/29/24 07:17
Absolute Monos (auto) 1.0 10^3/uL (0.1-0.6) H 08/29/24 07:17
Absolute Basos (auto) 0.1 10^3/uL (0-0.2) 08/29/24 07:17
Immature Gran % 2.1 % (0-0.5) H 08/29/24 07:17
Neutrophils % 58.9 % (42.2-75.2) 08/29/24 07:17
Lymphocytes % 22.9 % (20.5-51.1) 08/29/24 07:17
Monocytes % 11.4 % (1.7-9.3) H 08/29/24 07:17
Eosinophils % 3.8 % (0-6) 08/29/24 07:17
Basophils % 0.9 % (0-2) 08/29/24 07:17
Lactic Acid Cancelled 08/28/24 16:00
Microbiology Results
Micro:
08/28/24 12:05 Blood Culture - Preliminary
Blood/Venous No Growth in 24 hours- Final report to follow
08/28/24 14:42 Wound Culture - Preliminary
Foot - Left Proteus species
Viridans Streptococcus Group
Gram Stain - Preliminary
08/28/24 22:09 MRSA Screen - Pending
Nose
08/28/24 17:24 Blood Culture - Pending
Blood/Venous
08/29/24 MRI LE: There is no MR evidence for osteomyelitis. Rounded prominence of intermediate T1 and heterogeneous T2-weighted signal dorsal to the mid to distal first metatarsal bone. A small complex collection in this region is not excluded, with
evaluation limited by lack of intravenous contrast.
Assessment / Plan
# Left foot soft tissue extensive abscess and cellulitis.
- MRI without contrast, no osteo. + complex fluid dorsum hallux to first metarsal
- Wound swab Proteus, Viridans strep
- DC Vancomycin
-Continue cefepime.
- Add po metronidazole.
- Podiatry following.
# Uncontrolled DM with neuropathy
-Recommend tight glucose control
# Conditions BUILDING WRECKER
Diabetes mellitus type 2
Neuropathy
Hypertension
CKD 4
HLD
Sleep apnea on CPAP
Class III obesity, BMI 43
Rheumatoid arthritis on Cimzia
History of shoulder replacement
Care Review
Plan reviewed with: Physician (Dr. Jacobs)
[2024-08-29 18:14] LABS: Glucose - Point of Care 144 mg/dl (70-99)
--- NOTE | 2024-08-29 19:01 | W.PN.HOSP.TC ---
Addendum entered and electronically signed by Sharon Borja MD 08/29/24 19:51:
I saw and evaluated the patient independently. I reviewed the resident�s note and agree with findings and plan as documented by Dr. Wisdom.
GENERAL: well developed, well nourished, female in no apparent distress
HEENT: NC/AT--no O2 requirements
HEART: regular rate and rhythm, +S1, +S2
LUNGS : clear to auscultation bilaterally
ABDOM: soft, nontender, nondistended, + bowel sounds
EXT: no cyanosis, clubbing, or edema--left foot with gauze wrapped dressing
NEUROLOGIC: grossly intact
Cellulitis of left foot with abscess--pictures reviewed in chart--apprec ID/podiatry--cont vanco/cefepime and flagyl--MRI neg for osteomyelitis but small complex collection in the mid to distal first metatarsal bone is not excluded, with evaluation
limited by lack of intravenous contrast--Wound cultures positive for Proteus and strep viridans--likely will need surgical I&D
Type 2 Diabetes mellitus with diabetic neuropathy---Continue empagliflozin, repaglinide--Continue Lyrica for neuropathy--SSI plus Accu-Cheks- Diabetic diet
NAVNEET on CKD 4A--Baseline creatinine around 1.8 in 2023. 2.2 on presentation improved to 1.9 with IVF
Essential Hypertension- Continue metoprolol, losartan
GERD-Continue dexlansoprazole
Hyperlipidemia-Continue Lipitor 40 mg
Chronic ambulatory dysfunction--Rollator at baseline--PT/OT
Overactive bladder-Continue oxybutynin
Rheumatoid Arthritis--Left great toe involvement---Continue celecoxib
CODE STATUS-- Full code
DVT proph--SC heparin
Original Note:
Today's Communication/Plan
-
Continue IV ABX
Assessment / Plan
Assessment / Plan
74-year-old female with history of hypertension, hyperlipidemia, CKD stage Dallin, GERD, type 2 diabetes mellitus with diabetic neuropathy, history of debridements, who presents with cellulitis and chronic diabetic foot wound.
Cellulitis of left foot
Chronic diabetic foot ulcer of left great toe
�Left foot x-ray: No radiographic findings highly suspicious for osteomyelitis
�MRI without contrast (due to CKD 4A) showed no evidence of osteomyelitis
� Wound cultures positive for Proteus and strep viridans.
� Was on vancomycin and cefepime.
� Appreciate podiatry recs
� Appreciate ID recs. Vancomycin discontinued. Continue cefepime and metronidazole
Diabetes mellitus with diabetic neuropathy:
-Continue empagliflozin, repaglinide.
-Continue Lyrica for neuropathy
-SSI plus Accu-Cheks
- Diabetic diet
NAVNEET on CKD 4A
-Baseline creatinine around 1.8 in 2023. 2.2 on presentation improved to 1.9 with IVF
-Follow BMP
Hypertension:
- Continue metoprolol, losartan
GERD:
-Continue dexlansoprazole
Hyperlipidemia:
-Continue Lipitor 40 mg
Chronic ambulatory dysfunction:
-Rollator at baseline
-PT/OT
Overactive bladder:
-Continue oxybutynin
Rheumatoid Arthritis
Left great toe involvement
-Continue celecoxib
CODE STATUS: Full code
DVT prophylaxis: Subcu heparin
Anticipated Discharge: 24 - 48 hours
Subjective/Interval History
-
Date of Service: August 29, 2024
Objective Data
-
Labs:
Laboratory Results
08/29/24
07:17
WBC 8.9
Hgb 10.2 L
Hct 30.9 L
Plt Count 238
Sodium 142
Potassium 3.8
Chloride 107
Carbon Dioxide 23
BUN 32 H
Creatinine 1.9 H
Glucose 81
Calcium 8.2 L
Total Bilirubin 0.7
AST 24
ALT 19
Alkaline Phosphatase 104
Vital Signs:
Vital Signs
Temp Pulse Resp BP Pulse Ox
98 F 83 18 156/68 98
08/29/24 15:09 08/29/24 15:09 08/29/24 15:09 08/29/24 15:09 08/29/24 15:09
I&O
08/28/24 08/29/24 08/30/24
06:59 06:59 06:59
Intake Total 2131
Balance 2131
Review of Systems
-
History Source: Patient
Constitutional: Denies Fever, Fatigue or Chills
Abdomen/GI: Denies Abdominal Pain, Nausea, Diarrhea or Constipated
Skin: Reports Other (No foot or ankle pain)
Physical Exam
-
General: No Apparent Distress and Comfortable
Respiratory: Clear to Auscultation and Non Labored Respirations; Negative Wheezes, Rales, Rhonchi or Crackles
Cardiac: Regular Rhythm and S1/S2; Negative Murmur, Rub or Calf Tenderness
GI: Soft, Nontender, Nondistended and Normal Bowel Sounds
Skin: Other (Normal R foot. Erythema and swelling of left foot. wound dressing intact. )
Neuro: Awake, Alert and Oriented
Psych: Calm
[2024-08-29] MEDS: FLAGYL 500 MG PO (19:22)
[2024-08-29] MEDS: STERILE WATER FOR INJECTION 10 ML IV (19:23)
[2024-08-29] MEDS: MAXIPIME 1000 MG IV (19:23)
--- NOTE | 2024-08-29 19:25 | W.PN.POD ---
Today's Communication
Today's Communication
Leukocytosis resolved
MRI shows possible superficial abscess
Wound debrided at bedside today. Possible OR debridement tomorrow evening
Assessment / Plan
-
Assessment/plan
-Left LE cellulitis with possible superficial abscess dorsal foot
MRI shows no osteomyelitis but dorsal to the first metatarsal a focal area of heterogeneous fluid collection.
Patient denies fever and chills and WBC now 8.9 decrease from 12.3 on admission
Wound culture positive for Proteus species and Strep Viridans. Discussed with Dr. Coelho
Dressing removed and although distal lesions appear reduced in size, more proximal blister now open.
Debrided at bedside and purulence expressed at the area associated with MRI findings
No additional tissue necrosis noted proximal to the original lesions. Erythema still present but edema to foot decreased.
Will monitor and if significant improvement in wound appearance is not noted tomorrow, will take to the OR for debridement. NPO after 12pm ordered.
-Diabetes mellitus type 2 with peripheral neuropathy
-CKD
-HTN
-Rheumatoid arthritis
Subjective
Chief Complaint
74 year old female admitted with left LE cellulitis
Subjective
Patient states much less pain in the left foot today. Resting comfortably in bed.
Objective
Temp Pulse Resp BP Pulse Ox
98 F 83 18 156/68 98
08/29/24 15:09 08/29/24 15:09 08/29/24 15:09 08/29/24 15:09 08/29/24 15:09
08/29/24 07:17
08/29/24 07:17
Vital Signs and Lab results were reviewed.
Review of Systems
Review of Systems
Review of Systems: No Fever and No Chills
Physical Exam
Physical Exam
Dorsalis Pedis: Intact
Posterior Tibialis: Intact
Skin slough present with purulence expressed at one of the dorsal lesions. Excisional debridement of non viable tissue performed at bedside. Distal lesions improved but more proximal lesion open to tendon with drainage present. Cellulitis stable
from proximal markings yesterday and edema decreased.
[2024-08-29 21:30] LABS: Glucose - Point of Care 147 mg/dl (70-99)
[2024-08-29 22:15] VITALS: PULSE 96
[2024-08-29 23:00] VITALS: BP 130/60
[2024-08-30] VITALS (11 sets, daily range): BP systolic 15–164; BP diastolic 61–85; PULSE 88; BMI 42.7
[2024-08-30 08:09] LABS: Glucose - Point of Care 117 mg/dl (70-99)
[2024-08-30] MEDS: NOVOLOG FLEXPEN-LOW RESISTANCE SC ×3 (08:15→16:53)
[2024-08-30] MEDS: FLAGYL 500 MG PO ×2 (08:17→21:27)
[2024-08-30] MEDS: TYLENOL 650 MG PO (08:17)
[2024-08-30] MEDS: HEPARIN SC (08:43)
[2024-08-30] MEDS: CLARITIN 10 MG PO (08:54)
[2024-08-30 09:21] LABS: % Basophils 1.7 % (0-2); % Eosinophils 3.7 % (0-6); % Immature Granulocytes 4.3 % (0-0.5); % Lymphocytes 25.6 % (20.5-51.1); % Monocytes 9.4 % (1.7-9.3); % Neutrophils 55.3 % (42.2-75.2); Absolute Basophils 0.1 10^3/uL (0-0.2); Absolute Eosinophils 0.3 10^3/uL (0-0.7); Absolute Immature Granulocytes 0.3 10^3/uL (0-0.05); Absolute Monocytes 0.7 10^3/uL (0.1-0.6); Absolute Neutrophils 4.2 10^3/uL (1.4-6.5); Hemoglobin 10.4 g/dL (12.0-16.0); Mean Corp Hgb Conc. 33.5 g/dL (33.0-37.0); Mean Corpuscular Hgb 31.8 pg (27.0-31.0); Mean Corpuscular Volume 94.8 fL (81.0-99.0); Mean Platelet Volume 10.8 fL (7.4-10.4); Nucleated Red Blood Cells % 0 %; Platelet Count 257 10^3/uL (130-400); Red Blood Cell Count 3.27 10^6/uL (4.20-5.40); White Blood Cell Count 7.6 10^3/uL (4.8-10.8)
[2024-08-30 09:50] LABS: ALT (SGPT) 18 U/L (0-35); AST (SGOT) 29 U/L (14-36); Albumin 3.4 g/dl (3.5-5.0); Alkaline Phosphatase 100 U/L (38-126); Blood Urea Nitrogen 25 mg/dl (7-17); Calcium 8.7 mg/dl (8.4-10.2); Carbon Dioxide 20 mmol/L (22-30); Chloride 107 mmol/L (98-107); Estimated Creatinine Clearance 41 ml/min; Glucose 123 mg/dl (70-99); Potassium 3.9 mmol/L (3.5-5.1); Sodium 141 mmol/L (135-145); Total Protein 6.5 g/dl (6.3-8.2); eGFR 33.84
--- NOTE | 2024-08-30 11:36 | PN.CDI ---
CDI
- -
CDI:
Physician Documentation Request
Admit Date: 08/28/24 17:55
Dear Doctor Radha,
Patient admitted with cellulitis of left foot with abscess
08/29 podiatry note states 'debrided at bedside and purulence expressed .....
Could you provide, in the progress notes further clarification regarding the debridement.
Please specify the type of debridement performed:
1. Excisional Debridement - defined as removal by excision of devitalized tissue, necrosis or slough
2. Non-excisional debridement - defined as removal of devitalized tissue, necrosis or slough by such methods as irrigation, brushing, scrubbing or washing.
If the debridement was excisional, please also include:
1. Type of instrument used (#11 blade, #15 blade etc.)
2. What was excised (necrotic tissue, gangrenous tissue, slough etc.)
For excisional or non-excisional, please also include:
1. Depth of debridement (skin, subcutaneous tissue, fascia, muscle, bone etc)
2. Size and appearance of the wound (L, W, D, color of wound, drainage)
Use of terms such as suspected, likely, concern for, or probable (associated with a specific diagnosis that is being evaluated, monitored, or treated as if it exists) are acceptable and can be coded in the inpatient setting, when documented at the
time of discharge.
Thank you,
Yoon Mcallister RN, BSN
CDI Specialist
tiger text
Please use your independent medical judgment in providing your response.
[2024-08-30 11:56] LABS: Glucose - Point of Care 123 mg/dl (70-99)
[2024-08-30] MEDS: PRANDIN PO ×2 (12:00→16:30)
[2024-08-30] MEDS: LOPRESSOR 50 MG PO ×2 (12:07→21:27)
[2024-08-30] MEDS: ZOFRAN 4 MG IV (12:09)
--- NOTE | 2024-08-30 12:11 | W.PN.UPDATE ---
Update Note
Progress Note Update
Although left leg cellulitis is receding, edema decreased and WBC wnl, local wound opening continues to drain. Scheduled this evening for incision and drainage of left foot wound under sedation.
--- NOTE | 2024-08-30 13:48 | W.PN.HOSP.TC ---
Addendum entered and electronically signed by Sharon Borja MD 08/30/24 17:13:
I saw and evaluated the patient independently. I reviewed the resident�s note and agree with findings and plan as documented by Dr. Wisdom.
GENERAL: well developed, well nourished, female in no apparent distress
HEENT: NC/AT--no O2 requirements
HEART: regular rate and rhythm, +S1, +S2
LUNGS : clear to auscultation bilaterally
ABDOM: soft, nontender, nondistended, + bowel sounds
EXT: no cyanosis, clubbing, or edema--left foot with gauze wrapped dressing--picture reviewed
NEUROLOGIC: grossly intact
Cellulitis of left foot with abscess--picture reviewed in chart--apprec ID/podiatry--cont vanco/cefepime and flagyl--MRI neg for osteomyelitis but small complex collection in the mid to distal first metatarsal bone is not excluded, with evaluation
limited by lack of intravenous contrast--Wound cultures positive for Proteus and strep viridans-- surgical I&D for later today
Type 2 Diabetes mellitus with diabetic neuropathy---Continue empagliflozin, repaglinide--Continue Lyrica for neuropathy--SSI plus Accu-Cheks- Diabetic diet
NAVNEET on CKD 4A--Baseline creatinine around 1.8 in 2023. 2.2 on presentation improved to 1.9 with IVF
Essential Hypertension- Continue metoprolol, losartan
GERD-Continue dexlansoprazole
Hyperlipidemia-Continue Lipitor 40 mg
Chronic ambulatory dysfunction--Rollator at baseline--PT/OT
Overactive bladder-Continue oxybutynin
Rheumatoid Arthritis--Left great toe involvement---Continue celecoxib
CODE STATUS-- Full code
DVT proph--SC heparin
Original Note:
Today's Communication/Plan
-
IandD later today. Continue Abx
Assessment / Plan
Assessment / Plan
74-year-old female with history of hypertension, hyperlipidemia, CKD stage Dallin, GERD, type 2 diabetes mellitus with diabetic neuropathy, history of debridements, who presents with cellulitis and chronic diabetic foot wound.
Cellulitis of left foot
Chronic diabetic foot ulcer of left great toe
�Left foot x-ray: No radiographic findings highly suspicious for osteomyelitis
�MRI without contrast (due to CKD 4A) showed no evidence of osteomyelitis
� Wound cultures positive for Proteus and strep viridans.
� Left leg cellulitis/diabetic wound showing reduced erythema, edema and warmth today.
� Continue metronidazole and cefepime.
� Appreciate podiatry recs: Scheduled for incision and drainage of left foot wound today
� Appreciate ID recs
Diabetes mellitus with diabetic neuropathy:
-Continue empagliflozin, repaglinide.
-Continue Lyrica for neuropathy
-SSI plus Accu-Cheks
-Diabetic diet
NAVNEET on CKD 4A
-Baseline creatinine around 1.8 in 2023. 2.2 on presentation improved to 1.6 today
-Follow BMP
Nausea:
-Mild, zofran PRN (normal QTC)
Constipation:
- Bowel regimen
Heart murmur:
-Subtle systolic murmur on PE.
-Asymptomatic. Follow up with PCP outpt.
Hypertension:
- Continue metoprolol, losartan
GERD:
-Continue dexlansoprazole or equivalent
Hyperlipidemia:
-Continue Lipitor 40 mg
Chronic ambulatory dysfunction:
-Rollator at baseline
-PT/OT
Overactive bladder:
-Continue oxybutynin
Rheumatoid Arthritis
Left great toe involvement
-Continue celecoxib
CODE STATUS: Full code
DVT prophylaxis: Subcu heparin
Anticipated Discharge: Within 24 hours
Subjective/Interval History
-
Date of Service: August 30, 2024
Objective Data
-
Labs:
Laboratory Results
08/30/24
08:01
WBC 7.6
Hgb 10.4 L
Hct 31.0 L
Plt Count 257
Sodium 141
Potassium 3.9
Chloride 107
Carbon Dioxide 20 L
BUN 25 H
Creatinine 1.6 H
Glucose 123 H
Calcium 8.7
Total Bilirubin 1.0
AST 29
ALT 18
Alkaline Phosphatase 100
Vital Signs:
Vital Signs
Temp Pulse Resp BP Pulse Ox
97.7 F 84 18 173/60 99
08/30/24 07:00 08/30/24 12:07 08/30/24 07:00 08/30/24 12:07 08/30/24 07:00
I&O
08/29/24 08/30/24 08/31/24
06:59 06:59 06:59
Intake Total 2131
Balance 2131
Review of Systems
-
History Source: Patient
Constitutional: Denies Fever
Respiratory: Denies Trouble Breathing
Cardiac: Denies Chest Pain or Palpitations
Abdomen/GI: Reports Constipated; Denies Abdominal Pain, Nausea or Vomiting
Physical Exam
-
General: Well Nourished, No Apparent Distress and Comfortable
Respiratory: Clear to Auscultation and Non Labored Respirations; Negative Wheezes, Rales, Rhonchi or Crackles
Cardiac: Regular Rhythm, S1/S2 and Murmur (mils systolic); Negative Calf Tenderness
GI: Soft, Nontender, Nondistended and Normal Bowel Sounds
Skin: Other (Mild erythema of left foot and lower leg. Left dorsal foot wound with necrotic material and granulation)
Neuro: Awake, Alert and Oriented
Psych: Calm
[2024-08-30] MEDS: STERILE WATER FOR INJECTION 10 ML IV ×2 (14:24→21:28)
[2024-08-30] MEDS: MAXIPIME 1000 MG IV ×2 (14:25→21:28)
--- NOTE | 2024-08-30 15:11 | W.PN.ID1 ---
Date of Service
Date of Service: August 30, 2024
Today's Communication
Continue cefepime and metrondiazole.
Assessment / Plan
# Left foot soft tissue extensive abscess and cellulitis.
- MRI without contrast, no osteo. + complex fluid dorsum hallux to first metarsal
- Wound swab Proteus, Viridans strep
- Renally adjusted cefepime dose
- Continue po metronidazole (d2)
- To OR this evening for I+D
# Uncontrolled DM with neuropathy
-Recommend tight glucose control
# MRSA colonized
# Conditions TECHNICAL SPECIALIST
Diabetes mellitus type 2
Neuropathy
Hypertension
CKD 4
HLD
Sleep apnea on CPAP
Class III obesity, BMI 43
Rheumatoid arthritis on Cimzia
History of shoulder replacement
Chief Complaint
-: Other (foot infection)
Subjective / Review of Systems
Reports going to OR today.
Vital Signs / Physical Exam
Vital Signs
Vital Signs
Temp Pulse Resp BP Pulse Ox
97.7 F 84 18 173/60 99
08/30/24 07:00 08/30/24 12:07 08/30/24 07:00 08/30/24 12:07 08/30/24 07:00
Physical Exam
Constitutional: No Acute Distress and Comfortable
Cardiovascular: Regular Rate and S1/S2
Pulmonary: Clear
Gastrointestinal: Soft, Non Tender, Non Distended and Normal Bowel Sounds
Extremities: Negative Edema
Wound: Other (left foot dressing dry)
Neurological: AO x 3
Objective Data
Lab Data
Lab Results
08/30/24 08:01
08/30/24 08:01
Estimated Creat Clear 41 ml/min 08/30/24 08:01
Lactic Acid Cancelled 08/28/24 16:00
Total Bilirubin 1.0 mg/dl (0.2-1.3) 08/30/24 08:01
AST 29 U/L (14-36) 08/30/24 08:01
ALT 18 U/L (0-35) 08/30/24 08:01
Alkaline Phosphatase 100 U/L (38-126) 08/30/24 08:01
Most recent labs reviewed.
Micro Results:
08/28/24 12:05 Blood Culture - Preliminary
Blood/Venous No Growth in 48 hours- Final report to follow
08/28/24 22:09 MRSA Screen - Final
Nose Staph aureus MRSA
08/28/24 14:42 Wound Culture - Final
Foot - Left Proteus mirabilis
Viridans Streptococcus Group
Gram Stain - Final
08/28/24 17:24 Blood Culture - Preliminary
Blood/Venous No Growth in 24 hours- Final report to follow
08/29/24 MRI LE: There is no MR evidence for osteomyelitis. Rounded prominence of intermediate T1 and heterogeneous T2-weighted signal dorsal to the mid to distal first metatarsal bone. A small complex collection in this region is not excluded, with
evaluation limited by lack of intravenous contrast.
[2024-08-30 16:39] LABS: Glucose - Point of Care 98 mg/dl (70-99)
[2024-08-30] MEDS: LIPITOR PO (17:02)
--- NOTE | 2024-08-30 18:55 | W.PN.UPDATE ---
Update Note
Progress Note Update
Patient for I and D left foot. Tolerated procedure and anesthesia without complications and returned to recovery room with vital signs stable and neurovascular status in tact. Wound packed open. May ambulate in surgical shoe.
[2024-08-30 19:07] LABS: Glucose - Point of Care 98 mg/dl (70-99)
[2024-08-30] MEDS: DILAUDID 0.25 MG IV (19:29)
--- NOTE | 2024-08-30 19:45 | PTCARENOTE ---
Patient arrived from PACU. Patient AAO x3, on RA, in no acute distress. Patient with postop dressing to LLE, c/d/i. Postop vitals initiated. Patient oriented to room and call her within reach.
[2024-08-30 21:25] LABS: Glucose - Point of Care 191 mg/dl (70-99)
[2024-08-30] MEDS: DITROPAN 2.5 MG PO (21:26)
[2024-08-30] MEDS: LYRICA 50 MG PO (21:26)
[2024-08-30] MEDS: HEPARIN 5000 UNITS SC (21:28)
[2024-08-30] MEDS: CITROMA 300 ML PO (21:36)
[2024-08-31 03:10] VITALS: BP 113/65
[2024-08-31] MEDS: MAXIPIME 1000 MG IV ×2 (05:47→14:11)
[2024-08-31] MEDS: STERILE WATER FOR INJECTION 10 ML IV ×2 (05:48→14:12)
[2024-08-31 06:00] VITALS: BMI 43.2
[2024-08-31 07:28] LABS: Glucose - Point of Care 156 mg/dl (70-99)
[2024-08-31 07:30] VITALS: BP 93/71
[2024-08-31 08:15] LABS: % Basophils 1.4 % (0-2); % Lymphocytes 11.3 % (20.5-51.1); % Neutrophils 81.3 % (42.2-75.2); Absolute Basophils 0.1 10^3/uL (0-0.2); Absolute Immature Granulocytes 0.3 10^3/uL (0-0.05); Absolute Monocytes 0.2 10^3/uL (0.1-0.6); Hematocrit 32.2 % (37.0-47.0); Hemoglobin 11.3 g/dL (12.0-16.0); Mean Corp Hgb Conc. 35.1 g/dL (33.0-37.0); Mean Corpuscular Hgb 32.1 pg (27.0-31.0); Mean Corpuscular Volume 91.5 fL (81.0-99.0); Mean Platelet Volume 11.4 fL (7.4-10.4); Nucleated Red Blood Cells % 0 %; Platelet Count 272 10^3/uL (130-400); Red Blood Cell Count 3.52 10^6/uL (4.20-5.40); Red Cell Dist. Width 14.9 % (11.5-14.5); White Blood Cell Count 8.6 10^3/uL (4.8-10.8)
[2024-08-31] MEDS: COZAAR 100 MG PO (09:27)
[2024-08-31] MEDS: LOPRESSOR 50 MG PO (09:28)
[2024-08-31] MEDS: FLAGYL 500 MG PO (09:28)
[2024-08-31] MEDS: CLARITIN 10 MG PO (09:28)
[2024-08-31] MEDS: DITROPAN 2.5 MG PO (09:29)
[2024-08-31] MEDS: CELEBREX 200 MG PO (09:31)
[2024-08-31] MEDS: PRANDIN PO ×4 (09:32→17:36)
[2024-08-31] MEDS: HEPARIN 5000 UNITS SC (09:35)
[2024-08-31] MEDS: LASIX 40 MG PO (09:35)
[2024-08-31] MEDS: NOVOLOG FLEXPEN-LOW RESISTANCE 1 UNITS SC ×2 (09:37→12:44)
--- NOTE | 2024-08-31 11:38 | W.PN.ID1 ---
Date of Service
Date of Service: August 31, 2024
Today's Communication
- Continue cefepime (d4) and metronidazole (d3)
- At time of discharge, transition to cefuroxime 500mg po bid and metronidazole 500mg po bid through 09/10/24
Assessment / Plan
# Left foot soft tissue extensive abscess and cellulitis, improving
- MRI without contrast, no osteo. + complex fluid dorsum hallux to first metatarsal
-08/30 s/p I+D
- Wound swab Proteus, Viridans strep
- Continue cefepime (d4) and metronidazole (d3)
- At time of discharge, transition to cefuroxime 500mg po bid and metronidazole 500mg po bid through 09/10/24
# Uncontrolled DM with neuropathy
-Recommend tight glucose control
# MRSA colonized
# Conditions AIRPLANE CLEANER
Diabetes mellitus type 2
Neuropathy
Hypertension
CKD 4
HLD
Sleep apnea on CPAP
Class III obesity, BMI 43
Rheumatoid arthritis on Cimzia
History of shoulder replacement
Chief Complaint
-: Other (foot infection)
Subjective / Review of Systems
No pain.
Vital Signs / Physical Exam
Vital Signs
Vital Signs
Temp Pulse Resp BP Pulse Ox
97.4 F 66 16 136/72 97
08/31/24 07:30 08/31/24 09:27 08/31/24 07:30 08/31/24 09:27 08/31/24 07:30
Physical Exam
Constitutional: No Acute Distress and Comfortable
Cardiovascular: Regular Rate and S1/S2
Gastrointestinal: Soft, Non Tender and Non Distended
Extremities: Edema (LLE decrease edema) and Erythema (LLE above foot dressing: decreased erythema)
Neurological: AO x 3
Objective Data
Lab Data
Lab Results
08/31/24 07:23
Estimated Creat Clear Cancelled 08/31/24 09:12
Lactic Acid Cancelled 08/28/24 16:00
Total Bilirubin Cancelled 08/31/24 09:12
AST Cancelled 08/31/24 09:12
ALT Cancelled 08/31/24 09:12
Alkaline Phosphatase Cancelled 08/31/24 09:12
Most recent labs reviewed.
Micro Results:
08/28/24 17:24 Blood Culture - Preliminary
Blood/Venous No Growth in 48 hours- Final report to follow
08/28/24 12:05 Blood Culture - Preliminary
Blood/Venous No Growth in 48 hours- Final report to follow
08/28/24 22:09 MRSA Screen - Final
Nose Staph aureus MRSA
08/28/24 14:42 Wound Culture - Final
Foot - Left Proteus mirabilis
Viridans Streptococcus Group
Gram Stain - Final
08/29/24 MRI LE: There is no MR evidence for osteomyelitis. Rounded prominence of intermediate T1 and heterogeneous T2-weighted signal dorsal to the mid to distal first metatarsal bone. A small complex collection in this region is not excluded, with
evaluation limited by lack of intravenous contrast.
[2024-08-31 11:57] LABS: ALT (SGPT) 35 U/L (0-35); AST (SGOT) 66 U/L (14-36); Albumin 3.8 g/dl (3.5-5.0); Alkaline Phosphatase 101 U/L (38-126); Blood Urea Nitrogen 27 mg/dl (7-17); Calcium 8.9 mg/dl (8.4-10.2); Carbon Dioxide 23 mmol/L (22-30); Chloride 101 mmol/L (98-107); Estimated Creatinine Clearance 42 ml/min; Glucose 214 mg/dl (70-99); Sodium 137 mmol/L (135-145); Total Bilirubin 0.9 mg/dl (0.2-1.3); Total Protein 6.8 g/dl (6.3-8.2); eGFR 33.84
[2024-08-31 12:28] LABS: Glucose - Point of Care 178 mg/dl (70-99)
[2024-08-31 12:41] LABS: Potassium 5.7 mmol/L (3.5-5.1)
[2024-08-31] MEDS: PRANDIN 2 MG PO (12:44)
--- NOTE | 2024-08-31 13:00 | W.PN.POD ---
Today's Communication
Today's Communication
Stable for discharge from surgical standpoint
Oral antibiotic therapy as per ID
Assessment / Plan
-
Assessment/plan
-Left LE cellulitis/superficial abscess left foot
Successful surgical debridement of non viable soft tissue. No tunneling to adjacent compartments noted
Post op removal of packing shows healthy granular tissue and no further soft tissue necrosis
OK to discharge pending ID switch to oral antibiotics
Wound culture positive for Proteus species and Strep Viridans
Patient states she is able to perform daily dressing changes herself and will follow up in my office
Discussed use of adaptic, gauze and cling and ambulation in surgical shoe with walker
-Diabetes mellitus type 2 with peripheral neuropathy
-CKD
-HTN
-Rheumatoid arthritis
Subjective
Chief Complaint
74 year old female admitted with left LE cellulitis
Subjective
Patient states much less pain in the left foot today. Resting comfortably in bed.
Objective
Temp Pulse Resp BP Pulse Ox
97.4 F 66 16 136/72 97
08/31/24 07:30 08/31/24 09:27 08/31/24 07:30 08/31/24 09:27 08/31/24 07:30
08/31/24 07:23
08/31/24 10:37
Vital Signs and Lab results were reviewed.
Physical Exam
Physical Exam
Dressing and packing removed. No further necrotic soft tissue present. Bloody drainage only. Receding cellulitis. Ulcer base granular
[2024-08-31] MEDS: FLUSH (NSS) 2 FLUSH IV (14:14)
[2024-08-31 14:47] VITALS: BP 138/63
[2024-08-31] MEDS: TYLENOL 650 MG PO (15:08)
--- NOTE | 2024-08-31 15:13 | CM ---
Patient seen at bedside with physician and therapy. Patient for possible discharge tomorrow. Therapy recommended home health but patient declined. Patient for home with PO antibiotics per chart review. Patient with no needs anticipated. [facility] provided
to patient to review. CM will continue to follow for discharge planning needs.
Plan; home with no needs.
[2024-08-31 15:24] VITALS: BP 138/63; PULSE 65; O2SAT 94
--- NOTE | 2024-08-31 16:25 | W.PN.HOSP.TC ---
Addendum entered and electronically signed by Sharon Borja MD 08/31/24 17:07:
I saw and evaluated the patient independently. I reviewed the resident�s note and agree with findings and plan as documented by Dr. Wisdom.
GENERAL: well developed, well nourished, female in no apparent distress
HEENT: NC/AT--no O2 requirements
HEART: regular rate and rhythm, +S1, +S2
LUNGS : clear to auscultation bilaterally
ABDOM: soft, nontender, nondistended, + bowel sounds
EXT: no cyanosis, clubbing, or edema--left foot with gauze wrapped dressing post op--in surgical shoe
NEUROLOGIC: grossly intact
Cellulitis of left foot with abscess--picture reviewed in chart--apprec ID/podiatry--cont vanco/cefepime and flagyl--to oral cefuroxime 500mg po bid and metronidazole 500mg po bid through 09/10/24
--MRI neg for osteomyelitis but small complex collection in the mid to distal first metatarsal bone is not excluded, with evaluation limited by lack of intravenous contrast--Wound cultures positive for Proteus and strep viridans-- s/p surgical I&D
--cleared for d/c
Type 2 Diabetes mellitus with diabetic neuropathy---Continue empagliflozin, repaglinide--Continue Lyrica for neuropathy--SSI plus Accu-Cheks- Diabetic diet
NAVNEET on CKD 4A--Baseline creatinine around 1.8 in 2023. 2.2 on presentation improved to 1.9 with IVF
Essential Hypertension- Continue metoprolol, losartan
GERD-Continue dexlansoprazole
Hyperlipidemia-Continue Lipitor 40 mg
Chronic ambulatory dysfunction--Rollator at baseline--PT/OT
Overactive bladder-Continue oxybutynin
Rheumatoid Arthritis--Left great toe involvement---Continue celecoxib
CODE STATUS-- Full code
DVT proph--SC heparin
Original Note:
Today's Communication/Plan
-
Continue IV antibiotic
Assessment / Plan
Assessment / Plan
74-year-old female with history of hypertension, hyperlipidemia, CKD stage [place], GERD, type 2 diabetes mellitus with diabetic neuropathy, history of debridements, who presents with cellulitis and chronic diabetic foot wound.
Cellulitis of left foot
Chronic diabetic foot ulcer of left great toe
�Left foot x-ray: No radiographic findings highly suspicious for osteomyelitis
�MRI without contrast (due to CKD 4A) showed no evidence of osteomyelitis
� Wound cultures positive for Proteus and strep viridans.
� Left leg cellulitis/diabetic wound s/p I and D. Less pain. Left lower leg with erythema mostly resolved.
� Continue metronidazole (day 3) and cefepime (day 4).
� Appreciate podiatry recs
� Appreciate ID recs: transition to cefuroxime 500mg po bid and metronidazole 500mg po bid through 09/10/24
- PT/OT recs
Diabetes mellitus with diabetic neuropathy:
-Continue empagliflozin, repaglinide.
-Continue Lyrica for neuropathy
-SSI plus Accu-Cheks
-Diabetic diet
NAVNEET on CKD 4A
-Baseline creatinine around 1.8 in 2023. 2.2 on presentation, stable at 1.6 today
-Follow BMP
Nausea:
-Mild, zofran PRN (normal QTC)
Constipation:
- Bowel regimen
Heart murmur:
-Subtle systolic murmur on PE. No symptoms
-Asymptomatic. Follow up with PCP outpt.
Hypertension:
- Continue metoprolol, losartan
GERD:
-Continue dexlansoprazole or equivalent
Hyperlipidemia:
-Continue Lipitor 40 mg
Chronic ambulatory dysfunction:
-Rollator at baseline
-PT/OT
Overactive bladder:
-Continue oxybutynin
Rheumatoid Arthritis
Left great toe involvement
-Continue celecoxib
CODE STATUS: Full code
DVT prophylaxis: Subcu heparin
Anticipated Discharge: Within 24 hours
Subjective/Interval History
-
Date of Service: August 31, 2024
Status post I&D of left foot wound. Reports mild pain at wound site post op. Otherwise feels well
Objective Data
-
Labs:
Laboratory Results
08/31/24 08/31/24 08/31/24
07:23 09:12 10:37
WBC 8.6
Hgb 11.3 L
Hct 32.2 L
Plt Count 272
Sodium Cancelled Cancelled 137
Potassium Cancelled Cancelled 5.7 H D
Chloride Cancelled Cancelled 101
Carbon Dioxide Cancelled Cancelled 23
BUN Cancelled Cancelled 27 H
Creatinine Cancelled Cancelled 1.6 H
Glucose Cancelled Cancelled 214 H
Calcium Cancelled Cancelled 8.9
Total Bilirubin Cancelled Cancelled 0.9
AST Cancelled Cancelled 66 H
ALT Cancelled Cancelled 35
Alkaline Phosphatase Cancelled Cancelled 101
Vital Signs:
Vital Signs
Temp Pulse Resp BP Pulse Ox
98.1 F 61 16 138/63 95
08/31/24 15:13 08/31/24 14:47 08/31/24 14:47 08/31/24 14:47 08/31/24 14:47
I&O
08/30/24 08/31/24 09/01/24
06:59 06:59 06:59
Intake Total 720 / 720
Balance 720 / 720
Review of Systems
-
History Source: Patient
Constitutional: Denies Fever
Respiratory: Denies Trouble Breathing
Cardiac: Denies Chest Pain or Palpitations
Abdomen/GI: Reports Constipated; Denies Abdominal Pain, Nausea, Vomiting or Diarrhea
Musculoskeletal: Reports Other (Mild pain of medial left foot)
Physical Exam
-
General: No Apparent Distress and Comfortable
HEENT: Normocephalic, Atraumatic and Moist Mucous Membranes
Respiratory: Clear to Auscultation and Non Labored Respirations; Negative Wheezes, Rales, Rhonchi or Crackles
Cardiac: Regular Rhythm, S1/S2 and Murmur (Mild systolic); Negative Rub or Calf Tenderness
GI: Soft, Nontender, Nondistended and Normal Bowel Sounds
Musculoskeletal: No Clubbing, No Cyanosis and No Edema
Skin: Other (Left foot with dressings and Shlomo bandages dry and intact. Faint erythema of left lower leg)
Neuro: Awake, Alert and Oriented
Psych: Calm
[2024-08-31] MEDS: PROTONIX 40 MG PO (17:34)
[2024-08-31] MEDS: LIPITOR 40 MG PO (17:34)
[2024-08-31] MEDS: NOVOLOG FLEXPEN-LOW RESISTANCE SC (17:34)
[2024-08-31 19:15] VITALS: BP 131/58
--- NOTE | 2024-09-01 18:20 | W.DCSUMMARY ---
Addendum entered and electronically signed by Sharon Borja MD 09/02/24 07:07:
Read, reviewed, and agree. See same day progress note for additional details. Time spent coordinating care, DC planning, review of DC plan of care with resident, transition of care, review of records in EMR, med rec, consults, notes, d/w
consultants, nursing, family, and CM = 31 minutes
Original Note:
Discharge Summary
Discharge Data
Date of Admission: 08/28/24
Date of Discharge: 08/31/24
-
Pending Results: No
Hospital Course
Discharging Physician : Doreen Wisdom MD; Sharon Borja MD.
Disposition : Home
Primary care physician : Jhonny Vance MD
Principal Discharge diagnosis : Left foot cellulitis, diabetic foot wound
Chronic Discharge diagnosis : Hypertension, hyperlipidemia, CKD 4A, GERD, ery-jfwhdvl-lionfsvko diabetes mellitus, diabetic neuropathy, chronic diabetic foot ulcer, chronic ambulatory dysfunction, diverticulosis, sleep apnea, osteoarthritis,
rheumatoid arthritis
Hospital Course :
HPI:
74-year-old female with above past medical history complaining of a worsening wound to her left foot. She follows with podiatry Dr. Garcia and last saw her in April/May 2024 due to a chronic ulceration of her left great toe plantar
aspect. She reports over the past several days she has had increased redness and blistering to the left anterior toe with a pus filled blister she then had expanding erythema to the toe down to the foot/ankle and lower anterior one third of her
leg. She says the anterior one third of her leg is chronically red from a prior reaction to methotrexate however this appears to be coming from the left great toe and connecting to the erythema on the left lower extremity. She does have chronic
diabetic neuropathy. She has required debridements in the past but no amputations. She denies fever, chills, chest pain, palpitations, shortness breath, cough, abdominal pain, nausea, vomiting, diarrhea, rash, urinary symptoms. She does have a
dog at home and does have some dog hair present in her wound on the toe. She does live alone drives a car uses a rollator. She has no family or emergency contacts I made her aware to contact the area agency on aging to sit down and formulate a
will and power of associate attorney if something were to happen to her.
She has past medical history HTN, CKD 4A, GERD, DM2, Diabetic neuropathy, chronic ambulatory dysfunction uses rollator, HLD diverticulosis, sleep apnea on nasal CPAP setting 15, osteoarthritis, rheumatoid arthritis diagnosed 2021 erosion LEFT great
toe s/p debridement.
Upon arrival to ED, vitals were stable, there was mild leukocytosis 12.3, mild anemia 11.4, random blood glucose 179, with creatinine 2.2. Blood and wound cultures were obtained and she was started on cefazolin and vancomycin. Blood cultures were
negative and wound culture was positive for Proteus species and Strep Viridans. Nasal swab was positive for MRSA and contact precautions were observed. She remained stable throughout stay.
Cefazolin and vancomycin were discontinued and effective antibiotic coverage with cefepime and metronidazole IV for Proteus and strep viridans was given while admitted. Surgical debridement procedure was done on 08/28. ABX transition upon discharge
to cefuroxime 500 mg p.o. twice daily and metronidazole 500 mg p.o. twice daily. She is to continue this regimen through 09/10.
Chronic home medications were continued during stay as appropriate. Low resistance insulin sliding scale added for blood glucose management.
Patient stated that she was able to perform daily dressing changes herself and she will follow up with Dr. Garcia. Use of adaptic, gauze and cling and ambulation in surgical shoe with walker was discussed. She was discharged to home on 08/31.
She can follow-up with PCP shortly.
Important imaging findings :
Left foot x-ray 08/28:
No radiographic findings highly suspicious for osteomyelitis.
MRI of the left foot without contrast 08/29:
There is no MR evidence for osteomyelitis.
Rounded prominence of intermediate T1 and heterogeneous T2-weighted signal dorsal to the mid to distal first metatarsal bone. A small complex collection in this region is not excluded, with evaluation limited by lack of intravenous contrast
Procedure findings :
Left LE cellulitis/superficial abscess left foot. Successful surgical debridement of non viable soft tissue. No tunneling to adjacent compartments noted. Post op removal of packing shows healthy granular tissue and no further soft tissue necrosis.
Discharge Plan
-
Patient Disposition: Home (Routine Discharge)
Discharge Diagnosis/Procedures: Left foot cellulitis, diabetic foot wound
Diet: Diabetic, Carb Controlled
Activity: As tolerated and With Walker
Driving Restrictions: As prior to admission
Activity Restrictions/Additional Instructions:
Per Dr. Garcia: Patient states she is able to perform daily dressing changes herself and will follow up in my office
Discussed use of adaptic, gauze and cling and ambulation in surgical shoe with walker
Instructions: Diabetes and infections
Referrals:
Jhonny Vance MD [Family Provider] - in less than 1 week
Shonna Garcia DPM [Specified Professional Personl] - in three to four days
Prescriptions:
New
cefuroxime axetil 500 mg tablet
500 mg PO BID Qty: 21 0RF
metronidazole 500 mg tablet
500 mg PO BID Qty: 21 0RF
Continued
celecoxib 200 MG capsule
200 mg PO DAILY
metoprolol tartrate 50 MG tablet
50 mg PO BID
Lumigan 0.01 % Drops
1 drp BOTH EYES HS
atorvastatin 40 mg Tablet
40 mg PO HS
repaglinide 2 mg Tablet
2 mg PO TID
therapeutic multivitamin Tablet
1 tab PO DAILY
acetaminophen [Tylenol Extra Strength] 500 mg Tablet
500 mg PO Q8HPRN PRN (Reason: mild pain/fever)
Allergy Relief D-24hr 10-240 mg Tablet Extended Release 24 Hr
1 tab PO DAILY
ascorbic acid (vitamin C) [Vitamin C] 500 mg Tablet
500 mg PO DAILY
docusate sodium [Stool Softener] 100 mg Capsule
100 mg PO Q48H
furosemide 20 mg Tablet
20 mg PO MOWEFR
furosemide 20 mg Tablet
40 mg PO SUTUTHSA
pyridoxine (vitamin B6) 100 mg Tablet
100 mg PO DAILY
losartan 100 mg Tablet
100 mg PO DAILY
fluticasone propionate 50 mcg/actuation [place],Suspension
1 spray INTRANASAL DAILYPRN PRN (Reason: congestion)
coenzyme Q10 [CoQ-10] 100 mg Capsule
100 mg PO HS
pregabalin 50 mg Capsule
50 mg PO DAILY
cholecalciferol (vitamin D3) [Vitamin D3] 50 mcg (2,000 unit) Tablet
50 mcg PO DAILY
dexlansoprazole 60 mg Capsule,Biphase Delayed Releas
60 mg PO DAILY
Slow-Mag 71.5 mg Tablet,Delayed Release (Dr/Ec)
71.5 mg PO DAILY
Jardiance 10 mg Tablet
10 mg PO DAILY
Ozempic 2 mg/dose (8 mg/3 mL) Pen Injector
4 mg SC QWEEK
Patient Comments:
08/28/24: Double checked with patient, she states that she does 2x injections of the 2mg Ozempic pens.
oxybutynin chloride 2.5 mg Tablet
2.5 mg PO BID
Discharge Orders:
Discharge Patient (As Directed); Ordered 08/31/24
Ordered By: Doreen Wisdom
Discharge Date and Time
Discharge Date/Time: 08/31/24 19:39
Print Language: MACANESE
== END 2024-08-31 19:39 | disposition home or self-care (01) | DRG 623 ==
LOC: 4 WEST ACU 17:55
PROVIDERS: Clinical Nurse Specialist Family Health; Student in an Organized Health Care Education/Training Program; ADMITTING PHYSICIAN Hospitalist; ATTENDING PHYSICIAN Internal Medicine; CONSULT PHYSICIAN Internal Medicine Infectious Disease; CONSULT PHYSICIAN Podiatrist Foot & Ankle Surgery; EMERGENCY PHYSICIAN Student in an Organized Health Care Education/Training Program; FAMILY PHYSICIAN Internal Medicine
PROC: 0JBR0ZZ Excision of Left Foot Subcutaneous Tissue and Fascia, Open Approach (ICD-10-PCS; 2024-08-29)
DX: E11.621 Type 2 diabetes mellitus with foot ulcer (principal); L02.612 Cutaneous abscess of left foot; L03.116 Cellulitis of left lower limb; Z68.41 Body mass index [BMI] 40.0-44.9, adult; E66.813 Obesity, class 3; E11.40 Type 2 diabetes mellitus with diabetic neuropathy, unspecified; E11.22 Type 2 diabetes mellitus with diabetic chronic kidney disease; E78.5 Hyperlipidemia, unspecified; G47.30 Sleep apnea, unspecified; I12.9 Hypertensive chronic kidney disease with stage 1 through stage 4 chronic kidney disease, or unspecified chronic kidney disease; K21.9 Gastro-esophageal reflux disease without esophagitis; L03.032 Cellulitis of left toe; N18.4 Chronic kidney disease, stage 4 (severe); M06.9 Rheumatoid arthritis, unspecified; B96.4 Proteus (mirabilis) (morganii) as the cause of diseases classified elsewhere; B95.4 Other streptococcus as the cause of diseases classified elsewhere; N17.9 Acute kidney failure, unspecified; K59.00 Constipation, unspecified; N32.81 Overactive bladder; L97.519 Non-pressure chronic ulcer of other part of right foot with unspecified severity; Z88.0 Allergy status to penicillin; Z88.1 Allergy status to other antibiotic agents; Z79.84 Long term (current) use of oral hypoglycemic drugs; Z79.85 Long-term (current) use of injectable non-insulin antidiabetic drugs; Z96.619 Presence of unspecified artificial shoulder joint; Z79.899 Other long term (current) drug therapy
CPT/HCPCS: 73630; 73718; 80053; 80202; 82962; 83605; 83735; 85025; 87040; 87070; 87071; 87077; 87147; 87186; 87205; 94660; 96365; 96366; 96375; 97116; 97162; 97166; 99285

== ENCOUNTER → 2024-09-15 09:47 | Outpatient (REF) | payer MEDICARE, OTHER, SELFPAY ==
[2024-09-15 10:57] LABS: Blood Urea Nitrogen 68 mg/dl (7-17); Calcium 9.7 mg/dl (8.4-10.2); Carbon Dioxide 16 mmol/L (22-30); Chloride 104 mmol/L (98-107); Glucose 150 mg/dl (70-99); Potassium 4.8 mmol/L (3.5-5.1); Sodium 137 mmol/L (135-145)
== END ==
LOC: REG 09:47
PROVIDERS: ATTENDING PHYSICIAN Specialist; FAMILY PHYSICIAN Internal Medicine
DX: Z86.39 Personal history of other endocrine, nutritional and metabolic disease (principal); I10 Essential (primary) hypertension; E87.20 Acidosis, unspecified
CPT/HCPCS: 36415; 80048

== ENCOUNTER → 2024-09-26 12:05 | Outpatient (REF) | payer MEDICARE, OTHER, SELFPAY ==
[2024-09-26 14:28] LABS: Albumin 4.7 g/dl (3.5-5.0); Blood Urea Nitrogen 41 mg/dl (7-17); Carbon Dioxide 22 mmol/L (22-30); Chloride 99 mmol/L (98-107); Glucose 170 mg/dl (70-99); Phosphorus 4.3 mg/dl (2.5-4.5); Potassium 4.1 mmol/L (3.5-5.1); Sodium 139 mmol/L (135-145); eGFR 27.54
== END ==
LOC: REG 12:05
PROVIDERS: ATTENDING PHYSICIAN Specialist; OTHER PHYSICIAN Internal Medicine Rheumatology; REFERRING PHYSICIAN Internal Medicine
DX: Z87.448 Personal history of other diseases of urinary system (principal); R80.9 Proteinuria, unspecified; Z86.39 Personal history of other endocrine, nutritional and metabolic disease
CPT/HCPCS: 36415; 80069

== ENCOUNTER → 2024-10-20 10:16 | Outpatient (REF) | payer MEDICARE, OTHER, SELFPAY ==
[2024-10-20 11:36] LABS: % Basophils 1.1 % (0-2); % Eosinophils 4.9 % (0-6); % Immature Granulocytes 0.5 % (0-0.5); % Lymphocytes 24.8 % (20.5-51.1); % Neutrophils 59.7 % (42.2-75.2); Absolute Basophils 0.1 10^3/uL (0-0.2); Absolute Eosinophils 0.4 10^3/uL (0-0.7); Absolute Monocytes 0.7 10^3/uL (0.1-0.6); Absolute Neutrophils 4.9 10^3/uL (1.4-6.5); Hematocrit 38.6 % (37.0-47.0); Hemoglobin 12.8 g/dL (12.0-16.0); Mean Corp Hgb Conc. 33.2 g/dL (33.0-37.0); Mean Corpuscular Hgb 31.7 pg (27.0-31.0); Mean Corpuscular Volume 95.5 fL (81.0-99.0); Mean Platelet Volume 11.4 fL (7.4-10.4); Nucleated Red Blood Cells % 0 %; Platelet Count 243 10^3/uL (130-400); Red Blood Cell Count 4.04 10^6/uL (4.20-5.40); Red Cell Dist. Width 13.7 % (11.5-14.5); White Blood Cell Count 8.2 10^3/uL (4.8-10.8)
[2024-10-20 12:10] LABS: Albumin 4.8 g/dl (3.5-5.0); Blood Urea Nitrogen 28 mg/dl (7-17); Calcium 10.1 mg/dl (8.4-10.2); Carbon Dioxide 28 mmol/L (22-30); Chloride 100 mmol/L (98-107); Glucose 111 mg/dl (70-99); Phosphorus 3.6 mg/dl (2.5-4.5); Potassium 4.2 mmol/L (3.5-5.1); Sodium 142 mmol/L (135-145); eGFR 27.54
[2024-10-20 15:37] LABS: Microalbumin/creatinine Ratio 35.1 mg/g
== END ==
LOC: REG 10:16
PROVIDERS: ATTENDING PHYSICIAN Specialist; FAMILY PHYSICIAN Internal Medicine; REFERRING PHYSICIAN Internal Medicine Rheumatology
DX: Z86.39 Personal history of other endocrine, nutritional and metabolic disease (principal); Z87.448 Personal history of other diseases of urinary system; R76.8 Other specified abnormal immunological findings in serum; R80.9 Proteinuria, unspecified; N18.4 Chronic kidney disease, stage 4 (severe)
CPT/HCPCS: 36415; 80069; 82043; 82570; 83970; 85025

== ENCOUNTER → 2024-12-05 09:24 | Outpatient (REF) | payer MEDICARE, OTHER, SELFPAY ==
[2024-12-05 10:52] LABS: ALT (SGPT) 30 U/L (0-35); AST (SGOT) 31 U/L (14-36); Albumin 4.5 g/dl (3.5-5.0); Alkaline Phosphatase 77 U/L (38-126); Blood Urea Nitrogen 32 mg/dl (7-17); Calcium 9.9 mg/dl (8.4-10.2); Carbon Dioxide 30 mmol/L (22-30); Chloride 103 mmol/L (98-107); Direct Bilirubin 0.2 mg/dl (0.0-0.4); Glucose 96 mg/dl (70-99); HDL Cholesterol 40 mg/dl; LDL Cholesterol, Calculated 48 mg/dl; Potassium 4.1 mmol/L (3.5-5.1); Sodium 142 mmol/L (135-145); Total Bilirubin 0.7 mg/dl (0.2-1.3); Total Cholesterol 125 mg/dl (50-199); Total Protein 7.5 g/dl (6.3-8.2); Triglyceride 187 mg/dl (10-149); Very Low Density Lipoprotein 37 mg/dl (0-30); eGFR 31.47
[2024-12-05 11:01] LABS: Glycohemoglobin (HgbA1c) 5.5 % (4.0-5.6)
== END ==
LOC: REG 09:24
PROVIDERS: ATTENDING PHYSICIAN Internal Medicine; FAMILY PHYSICIAN Specialist; REFERRING PHYSICIAN Internal Medicine Rheumatology
DX: N18.4 Chronic kidney disease, stage 4 (severe) (principal); E11.65 Type 2 diabetes mellitus with hyperglycemia; E78.5 Hyperlipidemia, unspecified
CPT/HCPCS: 36415; 80053; 80061; 82248; 83036

== ENCOUNTER → 2024-12-20 14:46 | Outpatient (REF) | payer MEDICARE, OTHER, SELFPAY | LOC: HWRCS 14:46 | PROVIDERS: ATTENDING PHYSICIAN Internal Medicine | DX: R01.1 Cardiac murmur, unspecified (principal) | CPT/HCPCS: 93306 ==

== ENCOUNTER → 2025-01-26 14:04 | Outpatient (REF) | payer MEDICARE, OTHER, SELFPAY | LOC: HWWDC 14:04 | PROVIDERS: ATTENDING PHYSICIAN Internal Medicine; REFERRING PHYSICIAN Internal Medicine Rheumatology | DX: Z13.820 Encounter for screening for osteoporosis (principal); Z12.31 Encounter for screening mammogram for malignant neoplasm of breast; M81.0 Age-related osteoporosis without current pathological fracture | CPT/HCPCS: 77063; 77067; 77080 ==

== ENCOUNTER → 2025-02-14 10:09 | Outpatient (REF) | payer MEDICARE, OTHER, SELFPAY | LOC: WDC 10:09 | PROVIDERS: ATTENDING PHYSICIAN Internal Medicine | DX: R92.8 Other abnormal and inconclusive findings on diagnostic imaging of breast (principal) | CPT/HCPCS: 76642 ==

== ENCOUNTER 2025-03-19 15:15 | Emergency (ER) | payer MEDICARE, OTHER, SELFPAY ==
[2025-03-19 15:16] VITALS: BP 161/84
[2025-03-19 19:04] VITALS: BP 134/56
--- NOTE | 2025-03-19 19:30 | ED.MUSCINJ ---
HPI-Injury
General
Chief Complaint: Fall
Source: patient
Exam Limitations: none
Time Seen by Provider: 03/19/25 16:55
History of Present Illness-Injury
Initial Injury comments:
74-year-old female presents after mechanical fall. She states that fell over the dog and the glass broke and cut her face. She hit her head on the floor. She is not anticoagulated. She noted a laceration to the right cheek and multiple other
nicks to the left eyebrow and left hand. No loss of consciousness. No neck pain. No other
Past History
Past History
ED Past Medical History: HTN, NIDDM and Other
ED Past Surgical History: Orthopedic
Social History
Tobacco: Non-smoker
Alcohol: Occasional
Drug: None
Personal: Single
Living: alone
Phy Exam
Physical Exam
Physical Exam:
General: Well-appearing female no acute respiratory distress
HEENT: Normocephalic laceration noted to right cheek upside down T and shape. No obvious foreign bodies. There is mild soft tissue surrounding this laceration total length of laceration is about 3 cm. Pupils equal round reactive to light
Neurologic exam: Alert and oriented conversing appropriate normal gait conversing appropriately good strength and sensation.
MSK: c-spine nontender
Injury Course
Orders/Labs/Results
Orders:
Orders
03/19/25 17:05
CT Facial Bones W/o Iv Contras Urgent
Comment:
Reason For Exam: fall, possible FB right cheek
03/19/25 17:06
CT Head W/o Iv Contrast Urgent
Comment:
Reason For Exam: fall
MDM/Problems Addressed
Differential Diagnosis Includes:
Mechanical fall falling on a broken glass cutting right cheek. CT head and face pending to evaluate for foreign body or intracranial hemorrhage. The wound will require sutures
*Pulse Oximetry
SaO2: 99
Oxygen Mode of Delivery: Room air
Patient hypoxic: no
*Critical Care Note
Total Time (30-74mins, 75-104mins- exclusive of procedures): Not Applicable
Update Note
Update Note:
CT reviewed. Possible small foreign body in the skin. The area was anesthetized. All visible and palpable foreign bodies were removed. There was a nonviable flap of skin that was excised and the wound was cleansed with saline. 1% lidocaine with
epinephrine was used to anesthetize the skin. The wound was then irrigated with saline and closed in a simple erupted fashion using 5-0 Prolene sutures. A total of 3 sutures were required to provide wound edge approximation and hemostasis.
Patient is up-to-date on her tetanus vaccine. Wound care instructions were given she was stable for discharge
ED Attending Note
-
Portions of this chart may have been created with voice recognition software.� Occasional wrong word or��sound alike� substitutions may have occurred due to the inherent limitations of voice recognition software.
Discharge Plan
Departure
Patient Disposition: Home (Routine Discharge)
Date of Disposition: 03/19/25
Time of Disposition: 19:57
Patient with high blood pressure during this ER visit?: No
Discharge Problem:
Laceration
Instructions: Laceration Repair With Stitches (DC)
Prescriptions:
No Action
celecoxib 200 MG capsule
200 mg PO DAILY
metoprolol tartrate 50 MG tablet
50 mg PO BID
Lumigan 0.01 % Drops
1 drp BOTH EYES HS
atorvastatin 40 mg Tablet
40 mg PO HS
repaglinide 2 mg Tablet
2 mg PO TID
therapeutic multivitamin Tablet
1 tab PO DAILY
acetaminophen [Tylenol Extra Strength] 500 mg Tablet
500 mg PO Q8HPRN PRN (Reason: mild pain/fever)
Allergy Relief D-24hr 10-240 mg Tablet Extended Release 24 Hr
1 tab PO DAILY
ascorbic acid (vitamin C) [Vitamin C] 500 mg Tablet
500 mg PO DAILY
docusate sodium [Stool Softener] 100 mg Capsule
100 mg PO Q48H
furosemide 20 mg Tablet
20 mg PO MOWEFR
furosemide 20 mg Tablet
40 mg PO SUTUTHSA
pyridoxine (vitamin B6) 100 mg Tablet
100 mg PO DAILY
losartan 100 mg Tablet
100 mg PO DAILY
fluticasone propionate 50 mcg/actuation [place],Suspension
1 spray INTRANASAL DAILYPRN PRN (Reason: congestion)
coenzyme Q10 [CoQ-10] 100 mg Capsule
100 mg PO HS
pregabalin 50 mg Capsule
50 mg PO DAILY
cholecalciferol (vitamin D3) [Vitamin D3] 50 mcg (2,000 unit) Tablet
50 mcg PO DAILY
dexlansoprazole 60 mg Capsule,Biphase Delayed Releas
60 mg PO DAILY
Slow-Mag 71.5 mg Tablet,Delayed Release (Dr/Ec)
71.5 mg PO DAILY
Jardiance 10 mg Tablet
10 mg PO DAILY
Ozempic 2 mg/dose (8 mg/3 mL) Pen Injector
4 mg SC QWEEK
Patient Comments:
08/28/24: Double checked with patient, she states that she does 2x injections of the 2mg Ozempic pens.
oxybutynin chloride 2.5 mg Tablet
2.5 mg PO BID
cefuroxime axetil 500 mg tablet
500 mg PO BID Qty: 21 0RF
metronidazole 500 mg tablet
500 mg PO BID Qty: 21 0RF
Referrals:
UNKNOWN - PT DOES,NOT KNOW [Family Provider]
Activity Restrictions/Additional Instructions:
Keep clean. He may apply antibacterial ointment daily. Ice to the sore spots. Use Tylenol or ibuprofen for pain. Have sutures removed in about 5 days.
Interventions
Interventions:
*Risk Screen - Suicide Last Done: 03/19/25 15:18
*General Assessment Last Done: 03/19/25 15:18
*Neglect/Abuse Screening Last Done: 03/19/25 15:18
*ED- Fall Risk Assessment Last Done: 03/19/25 19:04
*ED COVID-19 Vaccine History Last Done: 03/19/25 19:04
ED-Musculoskeletal Assessment Last Done: 03/19/25 19:04
ED- Neurological Assessment Last Done: 03/19/25 19:04
ED-Skin Assessment Last Done: 03/19/25 19:04
Discharge Date and Time
Print Language: HUNGARIAN
== END 2025-03-19 20:15 | disposition home or self-care (01) ==
LOC: EMR 15:15
PROVIDERS: EMERGENCY PHYSICIAN Emergency Medicine
DX: S01.411A Laceration without foreign body of right cheek and temporomandibular area, initial encounter (principal); S01.112A Laceration without foreign body of left eyelid and periocular area, initial encounter; W25.XXXA Contact with sharp glass, initial encounter; W18.31XA Fall on same level due to stepping on an object, initial encounter; I10 Essential (primary) hypertension; E11.9 Type 2 diabetes mellitus without complications; Z88.1 Allergy status to other antibiotic agents; Z88.0 Allergy status to penicillin; Z88.8 Allergy status to other drugs, medicaments and biological substances; Z91.048 Other nonmedicinal substance allergy status
CPT/HCPCS: 99284; 12013; 70450; 70486

== ENCOUNTER → 2025-03-26 08:53 | Outpatient (REF) | payer MEDICARE, OTHER, SELFPAY ==
[2025-03-26 10:05] LABS: Hematocrit 40.3 % (37.0-47.0); Hemoglobin 13.3 g/dL (12.0-16.0); Mean Corp Hgb Conc. 33.0 g/dL (33.0-37.0); Mean Corpuscular Volume 93.5 fL (81.0-99.0); Nucleated Red Blood Cells % 0 %; Platelet Count 232 10^3/uL (130-400); Red Cell Dist. Width 14.3 % (11.5-14.5)
[2025-03-26 10:36] LABS: Microalb - Urine Creatinine 38.000 mg/dl; Microalbumin, Random Urine 1.1 mg/dl (0.6-1.7)
[2025-03-26 10:41] LABS: ALT (SGPT) 24 U/L (0-35); AST (SGOT) 24 U/L (14-36); Albumin 4.6 g/dl (3.5-5.0); Alkaline Phosphatase 68 U/L (38-126); Blood Urea Nitrogen 36 mg/dl (7-17); Calcium 10.4 mg/dl (8.4-10.2); Carbon Dioxide 27 mmol/L (22-30); Chloride 103 mmol/L (98-107); Glucose 71 mg/dl (70-99); HDL Cholesterol 52 mg/dl; LDL Cholesterol, Calculated 68 mg/dl; Potassium 4.5 mmol/L (3.5-5.1); Sodium 139 mmol/L (135-145); Total Protein 7.7 g/dl (6.3-8.2); Very Low Density Lipoprotein 25 mg/dl (0-30); eGFR 29.20
[2025-03-26 10:51] LABS: Glycohemoglobin (HgbA1c) 5.2 % (4.0-5.6)
== END ==
LOC: REG 08:53
PROVIDERS: ATTENDING PHYSICIAN Specialist; FAMILY PHYSICIAN Internal Medicine; REFERRING PHYSICIAN Internal Medicine Rheumatology
DX: Z87.448 Personal history of other diseases of urinary system (principal); Z86.39 Personal history of other endocrine, nutritional and metabolic disease; R76.8 Other specified abnormal immunological findings in serum; Z00.01 Encounter for general adult medical examination with abnormal findings; E11.8 Type 2 diabetes mellitus with unspecified complications; E78.5 Hyperlipidemia, unspecified; N18.4 Chronic kidney disease, stage 4 (severe); Z68.42 Body mass index [BMI] 45.0-49.9, adult; I10 Essential (primary) hypertension
CPT/HCPCS: 36415; 80053; 80061; 82043; 82570; 83036; 83970; 84100; 85025